=== PATIENT | male | born 1940 | race Caucasian/White ===

== ENCOUNTER → 2017-05-06 08:59 | Outpatient (CLI) | payer MEDICARE, OTHER ==
[~2017-05-06] VITALS: Ht 177.8 cm; Wt 82.7 kg
--- NOTE | ~2017-05-06 | HEMODYNAMI ---
PATIENT:PAULETTE BRIGHT MEDICAL RECORD: [id number] : 40 LOCATION:D.CAT ADMISSION DATE: 05/06/17 Generatedon:05/06/201711:31 Patient name: PAULETTE BRIGHT Patient #: [id number] SSN: : 1940 Date of study: 05/06/2017 Page: Of Hemodynamic Procedure Report Patient Data Patient Demographics Procedure consent was obtained First Name: PAULETTE Gender: Male Last Name: KAILA : 1940 Middle Initial: E Age: 76 year(s) Patient #: [id number] Race: Unknown Additional ID: [id number] Contact details Address: [address] [place] [address] State: [place] City: [place] Zip code: [address] Past Medical History Allergies: No known allergies Admission Admission Data Admission Date: 05/06/2017 Admission Time: 8:59 Admit Source: Other Procedure Procedure Types Cath Procedure Diagnostic Procedure LHC LHC w/Coronaries FFR/IVUS Intra-Coronary IVUS Initial PCI Procedure Coronary Stent Coronary Stent Initial Miscellaneous Procedures Moderate Sedation up to 15 minutes Procedure Description Procedure Date Procedure Date: 05/06/2017 Procedure Start Time: 11:10 Procedure End Time: 11:31 Procedure Staff Name Function José Ba MD Performing Physician Tanya Weaver RT Monitor Otto Almodovar RT Scrub Kirill Anderson RN Nurse Procedure Data Cath Procedure Fluoroscopy Diagnostic fluoroscopy Total fluoroscopy Time: 5.5 time: 5.5 min min Diagnostic fluoroscopy Total fluoroscopy dose: 849 dose: 849 mGy mGy Contrast Material Contrast Material Type Amount (ml) Isovue 300 156 Entry Location Entry Primary Successful Side Size Upsize Upsize Entry Closure Velázquez ccessful Closure Location (Fr) 1 (Fr) 2 (Fr) Remarks Device Remarks Radial Right 6 Fr Mechanical artery Short Compression Estimated blood loss: 10 ml Diagnostic catheters Device Type Used For End Catheter Placement DIAGNOSTIC Whiting 110cm 5 LV Angiography Fr catheter ([id number]) DIAGNOSTIC Whiting 110cm 5 Left Coronary Fr catheter ([id number]) Angiography DIAGNOSTIC Whiting 110cm 5 Right Coronary Fr catheter (206002) Angiography Procedure Complications No complications Procedure Medications Medication Administration Route Dosage 0.9% NaCl I.V. 100 ml/hr Oxygen NC 2 l/min Heparin Flush Bag added to field 2 bags (1000units/500ml NS) Lidocaine 2% added to field 20 Radial Cocktail I.A. 1 syringe (Verapomil 2mg/Nitro 400mcg/Heparin 1500units) Versed I.V. 1 mg Fentanyl I.V. 50 mcg Versed I.V. 0.5 mg Fentanyl I.V. 25 mcg Radial Cocktail I.A. 1 syringe (Verapomil 2mg/Nitro 400mcg/Heparin 1500units) Heparin Bolus I.V. 4000 units Versed I.V. 0.5 mg Fentanyl I.V. 25 mcg Hemodynamics Rest Heart Rate: 60 (bpm) Snapshots Pre Cath Intra NCS Post Cath Vital Signs Time Heart Resp SPO2 etCO2 NIBP (mmHg) Rhythm Pain Sedation Rate (ipm) (%) (mmHg) Status Level (bpm) 10:40:54 63 15 95 36.7 128/82(105) NSR 0 (11) 10(A) , No pain 10:45:34 60 14 97 0 122/75(93) NSR 0 (11) 10(A) , No pain 10:50:11 58 17 93 0 125/78(94) NSR 0 (11) 10(A) , No pain 10:54:47 58 17 92 10.5 119/79(90) NSR 0 (11) 10(A) , No pain 10:59:24 58 17 96 1.5 126/80(93) NSR 0 (11) 10(A) , No pain 11:04:03 58 18 96 11.2 120/76(94) NSR 0 (11) 10(A) , No pain 11:08:41 58 21 94 36.8 124/73(89) NSR 0 (11) 9(A) , No pain 11:13:18 57 17 95 27.7 121/75(90) NSR 0 (11) 9(A) , No pain 11:17:56 60 18 92 40.5 113/68(83) NSR 0 (11) 9(A) , No pain 11:22:33 59 17 96 23.2 119/69(81) NSR 0 (11) 9(A) , No pain 11:27:11 57 17 94 9.7 109/68(80) NSR 0 (11) 9(A) , No pain Medications Time Medication Route Dose Verified Delivered Reason Note s Effectiveness by by 10:42:52 0.9% NaCl I.V. 100 Kirill Kirill Per physician ml/hr Justin Anderson RN RN 10:43:01 Oxygen NC 2 l/min Kirill Kirill Per physician Justin Anderson RN RN 10:43:11 Heparin Flush added 2 bags Kirill Kirill used for Bag to Justin Anderson procedure (1000units/500ml RN RN NS) 10:43:22 Lidocaine 2% added 20ml Kirill Kirill for local to vial Justin Anderson anesthetic field GAONA RN 10:43:34 Radial Cocktail I.A. 1 Kirill Kirill used for (Verapomil syringe Justin Anderson procedure 2mg/Nitro RN RN 400mcg/Heparin 1500units) 11:01:33 Versed I.V. 1 mg Kirill Kirill for sedation Justin Anderson RN RN 11:01:44 Fentanyl I.V. 50 mcg Kirill Kirill for sedation Justin Anderson RN RN 11:05:40 Versed I.V. 0.5 mg Kirill Kirill for sedation Justin Anderson RN RN 11:05:47 Fentanyl I.V. 25 mcg Kirill Kirill for sedation Justin Anderson RN RN 11:12:54 Radial Cocktail I.A. 1 Kirill José for (Verapomil syringe Justin pompa 2mg/Nitro RN 400mcg/Heparin 1500units) 11:17:19 Heparin Bolus I.V. 4000 Kirill Kirill for units Justin Anderson anticoagulation RN RN 11:26:50 Versed I.V. 0.5 mg Kirill Kirill for sedation Justin Anderson RN RN 11:26:58 Fentanyl I.V. 25 mcg Kirill Kirill for sedation Justin Anderson RN television newscast director Log Time Note 10:15:51 Kirill Anderson RN sent for patient. Start room use. 10:33:29 Informed consent obtained and on chart 10:33:32 Admit Source: Other 10:33:57 Time tracking: Regular hours 10:34:01 Plan of Care:Hemodynamics will remain stable., Cardiac rhythm will remain stable., Comfort level will be maintained., Respiratory function will remain adequate., Patient/ family verbilizes understanding of procedure., Procedure tolerated without complication., Recovers from procedure without complications.. 10:34:04 Patient received from Pre/Post Procedure Room to CCL 1 Alert and oriented. Tansferred to table in Supine position. 10:34:05 Warm blankets applied, and yulia hugger turned on for patient comfort. 10:34:06 Correct patient and procedure confirmed by team. 10:34:06 ECG and BP/O2 sat monitors applied to patient. 10:34:13 H&P Date Dictated: 04/16/2017 Within 30 days and on chart., H&P Addendum completed by physician on day of procedure. (MUST COMPLETE FOR ALL OUTPATIENTS). 10:34:15 Pre-procedure instructions explained to patient. 10:34:15 Pre-op teaching completed and patient verbalized understanding. 10:34:16 Family in waiting room. 10:34:17 Patient NPO since Midnight. 10:40:00 Vital chart was started 10:42:52 0.9% NaCl 100 ml/hr I.V. was administered by Kirill Anderson RN; Per physician; 10:43:01 Oxygen 2 l/min NC was administered by Kirill Anderson RN; Per physician; 10:43:11 Heparin Flush Bag (1000units/500ml NS) 2 bags added to field was administered by Kirill Anderson RN; used for procedure; 10:43:15 Full Disclosure recording started 10:43:19 Rhythm: sinus bradycardia 10:43:22 Lidocaine 2% 20ml vial added to field was administered by Kirill Anderson RN; for local anesthetic; 10:43:30 Patient allergic to No known allergies 10:43:34 Radial Cocktail (Verapomil 2mg/Nitro 400mcg/Heparin 1500units) 1 syringe I.A. was administered by Kirill Anderson RN; used for procedure; 10:43:43 Is patient on blood thinner?Yes 10:43:46 ACC The patient was administered the following blood thiners within the last 24 hours: ACCPlavix 10:43:53 Patient diabetic? No. 10:43:57 Previous problem with sedation/anesthesia? No ? 10:43:59 Snore? Yes 10:44:02 Sleep apnea? Yes 10:44:03 Deviated septum? No 10:44:04 Opens mouth fully? Yes 10:44:04 Sticks out tongue? Yes 10:44:06 Airway obstruction? No ? 10:44:08 Dentures? No ? 10:44:12 Pre procedure: right dorsailis pedis pulse 2+ Normal; easily identifiable; not easily obliterated 10:44:14 Modified August's test Ulnar < 7 seconds 10:44:17 Patient pain scale 0/10 ?. 10:44:24 IV patent on arrival in left hand with 0.9% NaCl at [facility]. 10:44:26 Lab results completed and on chart. 10:44:32 Right Radial & Right Groin area was prepped with chlora-prep and draped in sterile fashion 10:44:33 Alarms reviewed by R. N. 10:44:34 Sharps counted by scrub and verified by R.N. 10:44:43 Use device set Radial Dx or PCI 10:44:44 ACIST Syringe (59008) opened to sterile field. 10:44:45 Medline Cath Pack ([id number]) opened to sterile field. 10:44:45 Bag Decanter (2002S) opened to sterile field. 10:44:46 SHEATH 6FR Slender ([id number]) opened to sterile field. 10:44:47 DIAGNOSTIC WIRE .035 260cm J wire (678722) opened to sterile field. 10:44:47 ACIST Hand Control (94278) opened to sterile field. 10:44:48 ACIST Manifold (12191) opened to sterile field. 10:44:48 Tegaderm 4 x 4 (1626W) opened to sterile field. 10:44:49 MBrace Wrist Support ([id number]) opened to sterile field. 10:54:02 Baseline sample Acquired. 11:00:13 Zero performed for pressure channel P1 11:00:24 Final Timeout: patient, procedure, and site verified with staff and physician. All members of the team are in agreement. 11:00:29 Right Radial site verified by team. 11:00:31 Physical assessment completed. ASA score P 2 - A patient with mild systemic disease as per José Ba MD. 11:00:35 Sedation plan: IV Moderate Sedation Medication:Versed, Fentanyl 11:01:33 Versed 1 mg I.V. was administered by Kirill Anderson RN; for sedation; 11::44 Fentanyl 50 mcg I.V. was administered by Kirill Anderson RN; for sedation; 11:05:40 Versed 0.5 mg I.V. was administered by Kirill Anderson RN; for sedation; 11:05:47 Fentanyl 25 mcg I.V. was administered by Kirill Anderson RN; for sedation; 11:10:43 Procedure started. 11:10:50 Local anesthetic to right radial artery with Lidocaine 2% by José Ba MD.INITIAL ACCESS ONLY 11:12:08 A 6 Fr Short sheath was inserted into the Right Radial artery 11:12:54 Radial Cocktail (Verapomil 2mg/Nitro 400mcg/Heparin 1500units) 1 syringe I.A. was administered by José Ba MD; for vasodilation; 11:13:51 A DIAGNOSTIC Whiting 110cm 5 Fr catheter (184600) was advanced over the wire and used for LV Angiography. 11:13:54 LV gram done using GRUBER 11:13:56 LV hemodynamics recorded. 11:13:59 Injector settings: Ml/sec: 5, Volume: 15, 11:14:10 A DIAGNOSTIC Whiting 110cm 5 Fr catheter (189763) was advanced over the wire and used for Left Coronary Angiography. 11:14:32 Use device set TAU PCI 11:14:35 INFLATOR Merit BasixCompak (AI6079) opened to sterile field. 11:14:56 A DIAGNOSTIC Whiting 110cm 5 Fr catheter (976750) was advanced over the wire and used for Right Coronary Angiography. 11:15:50 Catheter removed. 11:16:29 Belfair Hoh Eagleye IVUS Catheter (76026P) opened to sterile field. 11:17:19 Heparin Bolus 4000 units I.V. was administered by Kirill Anderson RN; for anticoagulation; 11:17:41 6 Fr XBLAD 3.5 guide catheter was inserted over the wire 11:18:02 Choice PT ES wire advanced. 11:18:21 Wire removed. 11:18:27 Guide Catheter removed. unable to cannulate vessel. 11:18:35 GUIDE 6FR XBLAD 3.5 catheter ([id number]) opened to sterile field. 11:18:36 GUIDE 6FR XBLAD 4.0 catheter (75744173) opened to sterile field. 11:18:42 CHOICE PT Extra Support 182cm wire ([id number]) opened to sterile field. 11:19:54 6 Fr XBLAD 4.0 guide catheter was inserted over the wire 11:20:08 CHOICE PT ES wire advanced. 11:21:11 IVUS catheter advanced over wire. 11:21:39 IVUS pass to LAD lesion performed. 11:21:40 IVUS catheter removed over wire. 11:23:42 Inflation Number: 1 A CIELO RX 2.5 x 22 stent ([id number]) was prepped and advanced across the Dist LAD. The stent was deployed at 13 YESSENIA for 0:10 (min:sec). 11:26:46 Inflation Number: 1 A CIELO RX 3.0 x 18 stent ([id number]) was prepped and advanced across the Mid LAD. The stent was deployed at 13 YESSENIA for 0:07 (min:sec). 11:26:50 Versed 0.5 mg I.V. was administered by Kirill Anderson RN; for sedation; 11::58 Fentanyl 25 mcg I.V. was administered by Kirill Anderson RN; for sedation; 11:27:05 Inflation number: 2 The stent balloon was then re-inflated across the Mid LAD to 13 YESSENIA for 0:06 (min:sec). 11:27:32 Stent catheter was removed intact over wire. 11:27:33 Wire removed. 11:27:34 Guide catheter removed. 11:27:43 Sheath removed intact; hemostasis achieved with Mechanical Compression to the Right Radial artery. 11::57 Procedure ended.(Physican Out) 11:28:32 Fluoroscopy time 05.50 minutes. 11::36 Flurop Dose total: 849 ::36 Fluoroscopy dose: 849 mGy 11::42 Contrast amount:Isovue 300 156ml. 11::44 Sharps counted by scrub and verified by R.N. 11:28:46 TR band inflated with 9cc of air. 11:28:47 Insertion/operative site no bleeding no hematoma. 11:28:54 Post right radial artery:stable, clean and dry 11::57 Post Procedure Pulses reassessed and unchanged 11:29:00 Post-procedure physical assessment completed. ASA score P 2 - A patient with mild systemic disease as per José Ba MD. 11:29:03 Post procedure rhythm: unchanged. 11:29:06 Estimated blood loss: 10 ml 11:29:07 Post procedure instruction explained to patient.Patient verbalizes understanding. 11:29:07 Patient needs reinforcement of post procedure teaching. 11:29:25 Procedure type changed to Cath procedure, Diagnostic procedure, LHC, LHC w/Coronaries, FFR/IVUS, Intra-Coronary IVUS Initial, PCI procedure, Coronary Stent, Coronary Stent Initial, Miscellaneous Procedures, Moderate Sedation up to 15 minutes 11:29:59 Procedure Complication : No complications 11:30:01 See physician's report for complete and final results. 11:30:19 TR BAND Standard ([id number]) opened to sterile field. 11:30:55 Procedure and supply charges have been captured, reviewed, submitted and are correct. 11:31:17 Vital chart was stopped 11::19 Report given to Pre/Post Procedure Room. 11:31:22 Patient transfered to Pre/Post Procedure Room with Stretcher. 11:31:25 Procedure ended. 11:31:25 Full Disclosure recording stopped 11:31:31 End room use (Document Last) Intervention Summary Intervention Notes Time ActionType Lesion and Equipment Used Action# Pressure Duration Attributes 11:23:42 Place stent Dist LAD CIELO RX 2.5 x 1 13 00:10 22 stent ([id number]) 11:26:46 Place stent Mid LAD CIELO RX 3.0 x 1 13 00:07 18 stent ([id number]) 11:27:05 Reinflate Mid LAD CIELO RX 3.0 x 2 13 00:06 stent 18 stent balloon ([id number]) Device Usage Item Name Manufacture Quantity Catalog Number Hospital Part Current M inimal Lot# / Charge Number Stock Stock Serial# Code ACIST Syringe Acist 1 07582 460007 511485 736014 2 0 (58129) Medical Loffles Inc Medline Cath Cardinal 1 [id number] 411456 47139 871279 5 Operative Media ([id number]) Bag Decanter Microtek 1 600255 88289 096418 5 () Medical Inc. SHEATH 6FR Terumo 1 [id number] 142521 113345 876102 4 0 Slender ([id number]) DIAGNOSTIC St Leif 1 705350 481380 103029 544655 3 0 WIRE .035 260cm J wire (713268) ACIST Hand Acist 1 60899 585137 822846 538898 5 Control Medical (08236) Systems Inc ACIST Manifold Acist 1 95675 761429 546576 159804 5 (99077) Medical Systems Inc Tegaderm 4 x 4 3M 1 1626W 013401 246883 374583 5 (1626W) MBrace Wrist Advanced 1 140-0250-00 991622 23136 872152 5 Support Vascular ([id number]) Dynamics DIAGNOSTIC Terumo 1 40-7103 089265 347103 147170 5 Whiting 110cm 5 Fr catheter (751405) INFLATOR Merit Merit 1 CC1127 798598 643768 882770 1 5 Proximic (TV9418) Belfair Belfair 1 80122H 512808 855103 079601 8 Hoh Eagleye IVUS Catheter (29913S) GUIDE 6FR Cardinal 1 45162714 702878 804877 100991 1 0 XBLAD 3.5 Health catheter (26856603) GUIDE 6FR Cardinal 1 17280931 739180 115292 423275 3 XBLAD 4.0 Health catheter (99471049) CHOICE PT [place] 1 [id number] 169646 509930 626890 5 Extra Support Scientific 182cm wire (6341044T4) CIELO RX 2.5 x Medtronic 1 [id number] 262450 8114134 657405 5 [id number] 22 stent ([id number]) CIELO RX 3.0 x Medtronic 1 [id number] 224451 4872246 135501 5 [id number] 18 stent ([id number]) TR BAND Terumo 1 [id number] 299335 284737 272695 4 0 Standard (JSI00OUM) Signature Audit Clayton Stage Time Signature Unsigned Intra-Procedure 05/06/2017 Tanya 11:31:44 AM Counts RT(R) Signatures Monitor : Tanya Signature : Counts RT Date : Time : [address] [place] [address]
--- NOTE | ~2017-05-06 | OP ---
PATIENT NAME: PAULETTE BRIGHT MEDICAL RECORD: [id number] :40 LOCATION:D.CAT ADMISSION DATE: SURGEON: SERGIO OREILLY MD DATE OF OPERATION: 05/06/2017 PROCEDURES: 1. PTCA and stent of LAD. 2. Intravascular ultrasound of LAD. 3. Left heart catheterization. 4. Selective coronary angiography. 5. Left ventriculogram. INDICATIONS: Angina and coronary artery disease. PROCEDURE: After informed consent was obtained and after detailed explanation of risks and benefits as well as alternative therapies, the patient elected to proceed with angiogram and angioplasty. The right radial area was prepped and draped in normal sterile fashion. Right radial artery was cannulated via modified Seldinger technique with placement of a 6-Afghan sheath. All catheters were exchanged through this sheath. FINDINGS: Left ventriculogram was performed in standard 30-degree GRUBER view, reveals good cardiac wall motion. Ejection fraction is 60%. SELECTIVE CORONARY ANGIOGRAPHY: 1. Left main has no significant angiographic disease. 2. Left anterior descending has greater than 80% stenosis, confirmed by intravascular ultrasound throughout the mid vessel. 3. Left circumflex has moderate irregularities, but no flow-limiting stenosis. 4. Right coronary has moderate irregularities, but no flow-limiting stenosis. PTCA AND STENT OF THE LAD: Stents used were 3.0 x 18 and 2.5 x 22, both [place] extents. Result was 0% residual stenosis. OVERALL IMPRESSION: Successful PTCA and stent of the LAD going from 80% initial stenosis to 0% residual. TRANSINT:[id number] Voice Confirmation ID: [id number] DOCUMENT ID: [id number] SERGIO OREILLY MD CC: [id number] DICTATION DATE: 05/06/17 1130 PETROLEUM INSPECTOR SUPERVISOR: 05/06/17 1159 REG [facility] [address] [place] [address]
[~2017-05-06 08:59] MED LIST: ASPIRIN EC81 M1 PO; FISH OIL 1,0001 CA1 PO; LIPITOR40 MG PO; MULTI-DAY VITAM1 TAB; MULTIPLE VITAMI1 TA1 PO; PLAVIX75 MG PO
[2017-05-06 09:25] VITALS: BP 139/105; Ht 177.8 cm; Wt 82.7 kg
[2017-05-06 09:34] LABS: HEMATOCRIT 43.6 % (42.0-54.0); HEMOGLOBIN 15.1 g/dL (13.5-17.5); LYMPHOCYTES 22.7 % (15-50); MCH 32.3 pg (26.0-34.0); MCHC 34.6 g/dL (31.0-37.0); MCV 93.4 fL (80.0-100.0); MEAN PLATELET VOLUME 10.2 fL (7.4-10.4); NEUTROPHILS 66.3 % (40-80); PLATELET COUNT 172 10x3/uL (130-400); RBC 4.67 10x6/uL (4.20-6.10); RDW 12.9 % (11.5-14.5); WBC 5.6 10x3/uL (4.8-10.8)
[2017-05-06 09:51] LABS: CALC OSMOLALITY 284 mosm/kg (275-300); CALCIUM 9.3 mg/dL (8.5-10.1); CARBON DIOXIDE 26.8 mmol/L (21.0-32.0); CHLORIDE - SERUM 106 mmol/L (98-107); GLUCOSE 97 mg/dL (74-106); SODIUM 142 mmol/L (136-145); UREA NITROGEN 17 mg/dL (7-18); eGFR NON AFRICAN AMERICAN 77 mL/min (90-120)
== END | disposition home or self-care (01) ==
LOC: D.CATH 08:59
PROVIDERS: Internal Medicine Interventional Cardiology
DX: I25.119 Atherosclerotic heart disease of native coronary artery with unspecified angina pectoris (principal); E78.5 Hyperlipidemia, unspecified; R06.09 Other forms of dyspnea; Z01.812 Encounter for preprocedural laboratory examination
CPT/HCPCS: 93458; 92978; C9600

== ENCOUNTER 2019-10-04 15:53 | Inpatient (IN) | payer MEDICARE, OTHER ==
[~2019-10-04] VITALS: Ht 175.3 cm; Wt 92.5 kg
--- NOTE | ~2019-10-04 | EC ---
PATIENT:PAULETTE BRIGHT DATE OF SERVICE: 10/04/19 SEX: M MEDICAL RECORD: [id number] DATE OF : [birth year] LOCATION:[facility] AGE OF PATIENT: 78 ADMISSION DATE: 10/04/19 REFERRING PHYSICIAN: INTERPRETING PHYSICIAN: DARI ANTOINE MD ECHOCARDIOGRAM REPORT ECHO CHARGES 4 ECHO COMPLETE Date: 10/07/19 CLINICAL DIAGNOSIS: AFIB, REPIRATORY FAILURE, COVID+ ECHOCARDIOGRAPHIC MEASUREMENTS (adult normal given) AC root (d.<3.7cm) 3.2 cm LV Septum d (<1.2 cm> 1.1 cm Valve Excursion 1.6 cm LV Septum (systole) 1.2 cm Left Atria (s.<4.0cm> 4.1 cm LVPW d(<1.2cm) 1.1 cm RV (d.<2.3cm) 2.0 cm LVPW (sytole) 1.4 cm LV diastole(<5.6CM) 4.8 cm MV E-F(>70mm/sec) cm LV systole 3.6 cm LVOT Diameter 1.6 cm MV exc.(>10mm) cm Est.ejection fraction (50-75%) % DOPPLER: LVIT cm/sec A 57 cm/sec E 27 cm/sec LA cm/sec RVSP 32.5 mmHg LVOT 91 cm/sec AOP1/2T m/s Asc. Ao 211 cm/sec RVOT 51 cm/sec RA cm/sec PA 87 cm/sec AV Gradient Peak 17.8 mmHg AV Mean 11.8 mmHg AV Area 0.7 cm MV Gradient Peak 2.8 mmHg MV Mean 1.7 mmHg MV Area cm COMMENTS: Billing Adjudicator: Marina MCFADDEN Video Editing Internship: Sampson Antoine TAPE# PACS Pericardial Effusion N DATE OF SERVICE: PROCEDURE: Transthoracic echocardiogram. FINDINGS: 1. Left ventricle appears to have normal to hyperdynamic function 60% to 65%. There is no obvious regional wall motion abnormalities. 2. Left atrium appears to be mildly dilated with normal function. 3. Aortic valve is normal. 4. Mitral valve is not well visualized, but grossly normal with no significant ECHOCARDIOGRAM REPORT [id number] PAULETTE BRIGHT mitral regurgitation demonstrated on this study. 5. Tricuspid valve has mild tricuspid regurgitation. RVSP appears to be 32 mmHg. 6. Right ventricle appears to be normal size, shape, structure, and function. 7. Pulmonic valve is not well visualized. TRANSINT:[id number] Voice Confirmation ID: [id number] DOCUMENT ID: [id number] DARI ANTOINE MD CC: [id number] DICTATION DATE: 10/08/19 1034 FELTMAKER: 10/08/19 1201 ADM IN [facility] [address] [place] [id number]
--- NOTE | 2019-10-04 16:58 | NUR ---
BLOOD TO LAB
--- NOTE | 2019-10-04 16:58 | NUR ---
BLOOD TO LAB
[2019-10-04 17:01] LABS: BASOPHILS 0.1 % (0-2); EOSINOPHILS 0.4 % (0-7); HEMATOCRIT 44.4 % (42.0-54.0); HEMOGLOBIN 15.3 g/dL (13.5-17.5); IMMATURE GRANULOCYTES 0.3 % (0-5); MCH 32.7 pg (26.0-34.0); MCHC 34.5 g/dL (31.0-37.0); MCV 94.9 fL (80.0-100.0); MEAN PLATELET VOLUME 10.3 fL (7.4-10.4); MONOCYTES 2.1 % (2-11); NEUTROPHILS 93.1 % (40-80); PLATELET COUNT 157 10x3/uL (130-400); RBC 4.68 10x6/uL (4.20-6.10); RDW 13.4 % (11.5-14.5); WBC 11.4 10x3/uL (4.8-10.8)
[2019-10-04] MEDS ORDERED: COREG 3.1253.125 MG PO (17:01)
[2019-10-04] MEDS ORDERED: B-12 DOTS500 MCG PO (17:02)
[2019-10-04] MEDS ORDERED: OSTEO BI-FLEX1 EAC1 PO (17:02)
[2019-10-04] MEDS ORDERED: LUTEIN20 MG PO (17:03)
[2019-10-04 17:15] LABS: CALC OSMOLALITY 263 mosm/kg (275-300); CALCIUM 8.7 mg/dL (8.5-10.1); CARBON DIOXIDE 24.3 mmol/L (21.0-32.0); CHLORIDE - SERUM 97 mmol/L (98-107); GLUCOSE 126 mg/dL (74-106); POTASSIUM - SERUM 3.2 mmol/L (3.5-5.1); SODIUM 130 mmol/L (136-145); UREA NITROGEN 16 mg/dL (7-18); eGFR NON AFRICAN AMERICAN 77 mL/min (90-120)
[2019-10-04 17:19] LABS: APTT 34.5 SECONDS (22.8-39.4); INR 1.52 (0.85-1.17); PROTIME 18.1 SECONDS (11.6-15.0)
[2019-10-04 17:32] LABS: ALBUMIN 2.4 g/dL (3.4-5.0); ALKALINE PHOSPHATASE 82 U/L (30-120); ALT (SGPT) 74 U/L (10-68); CREATINE KINASE 110 UL (21-232); PRO BNP 2198 pg/mL (0-450); PROTEIN - SERUM 6.8 g/dL (6.4-8.2)
[2019-10-04 17:37] LABS: TROPONIN-I < 0.017 ng/mL (0.000-0.060)
--- NOTE | 2019-10-04 18:34 | NUR ---
PT TO CT
--- NOTE | 2019-10-04 19:00 | NUR ---
REPORT GIVEN TO CANDELARIA BOWMAN
[2019-10-04 19:37] VITALS: BP 156/90
[2019-10-04 20:30] VITALS: BP 149/88
--- NOTE | 2019-10-04 20:35 | NUR ---
ADMINISTRATION TIMES ON MEDS FOR 10/04/19: AZITHROMYCIN 500MG/250ML, STARTED 1920, FINISHED 2020. 250ML INFUSED. REMDESIVIR 200MG/250ML, STARTED 1950, FINISHED 2030. 250ML INFUSED. KCL 10MEQ/100ML NS, STARTED 1929, FINISHED 2029. 100ML INFUSED. NS BOLUS 1000ML, STARTED 1821, FINISHED 1921. 1000ML INFUSED.
--- NOTE | 2019-10-04 20:40 | NUR ---
ARRIVES VIA STRETCHER TO BED LOW AND LOCKED O2 IN PLACE CALL LIGHT IN REACH
--- NOTE | 2019-10-04 20:50 | NUR ---
PT SOB WITH A FEW CRACKLES DEMINISHED WELL WILL LEAVE IV SALINE LOCKED TONIGHT
[2019-10-04 21:25] VITALS: BP 144/80
[2019-10-04 21:35] LABS: BILIRUBIN NEGATIVE (NEGATIVE); GLUCOSE NEGATIVE (NEGATIVE); KETONE NEGATIVE (NEGATIVE); NITRITE NEGATIVE (NEGATIVE); UROBILINOGEN NORMAL (NORMAL)
[2019-10-05] VITALS (12 sets, daily range): BP systolic 119–183; BP diastolic 78–122; BMI 25.1
--- NOTE | 2019-10-05 02:37 | NUR ---
I have reviewed this patient and I concur with the Shift Assessment completed by the Licensed Practical Nurse today this shift.
--- NOTE | 2019-10-05 02:38 | NUR ---
ADMISSION ASSESSMENT PER RN COMPLETED.
[2019-10-05 05:28] LABS: BASOPHILS 0.1 % (0-2); EOSINOPHILS 0 % (0-7); HEMATOCRIT 41.2 % (42.0-54.0); HEMOGLOBIN 14.1 g/dL (13.5-17.5); IMMATURE GRANULOCYTES 0.3 % (0-5); LYMPHOCYTES 4.5 % (15-50); MCH 32.1 pg (26.0-34.0); MCHC 34.2 g/dL (31.0-37.0); MCV 93.8 fL (80.0-100.0); MEAN PLATELET VOLUME 10.8 fL (7.4-10.4); MONOCYTES 2.7 % (2-11); NEUTROPHILS 92.4 % (40-80); RBC 4.39 10x6/uL (4.20-6.10); RDW 13.4 % (11.5-14.5); WBC 8.6 10x3/uL (4.8-10.8)
[2019-10-05 06:04] LABS: PLATELET COUNT 122 10x3/uL (130-400)
[2019-10-05 06:15] LABS: ALKALINE PHOSPHATASE 80 U/L (30-120); ALT (SGPT) 61 U/L (10-68); BILIRUBIN - TOTAL 1.52 mg/dL (0.2-1.3); CALC OSMOLALITY 274 mosm/kg (275-300); CALCIUM 8.2 mg/dL (8.5-10.1); CARBON DIOXIDE 25.1 mmol/L (21.0-32.0); CHLORIDE - SERUM 102 mmol/L (98-107); CREATINE KINASE 162 UL (21-232); CREATININE - SERUM 0.9 mg/dL (0.6-1.3); GLUCOSE 130 mg/dL (74-106); LDH 508 U/L (85-227); MAGNESIUM - SERUM 2.2 mg/dL (1.8-2.4); PHOSPHOROUS 2.1 mg/dL (2.5-4.9); PROTEIN - SERUM 5.9 g/dL (6.4-8.2); SODIUM 136 mmol/L (136-145); UREA NITROGEN 15 mg/dL (7-18); eGFR NON AFRICAN AMERICAN 87 mL/min (90-120)
[2019-10-05 06:18] LABS: FERRITIN 1386 ng/mL (3-244); POTASSIUM - SERUM 3.7 mmol/L (3.5-5.1)
[2019-10-05 06:31] LABS: C-REACTIVE PROTEIN 33.7 mg/dL (0.0-0.9)
--- NOTE | 2019-10-05 08:40 | NUR ---
NO RESULTS IN THE CHART FROM OUTSIDE FACILITY. I CALLED THE PATIENT WHO STATES TO CALL HIS . INFORMATION GIVEN. CALLED NAHUM AT [facility] AND THEY WILL FAXED THE RESULTS FROM [place] ON 09/24/19.
--- NOTE | 2019-10-05 10:09 | NUR ---
REPORT RECEIVED. WILL CONTINUE WITH POC. ASSISTED PT TO AND FROM BATHROOM. PT VOIDED APPROX 400ML OF URINE. CLEANED PT AND APPLIED NEW LINEN. DYSPNEA ON EXERTION. VSS AND WNL. PT ON 7L 02. NS INFUSING @50ML/HR VIA R.FOR PIV. L.FOR PIV SALINE LOCKED. NO S/S OF DISTRESS NOTED. PT DENIES ANY NEEDS AT THIS TIME. WILL CTM.
--- NOTE | 2019-10-05 15:54 | NUR ---
PT TRANSFERED TO 2311.
--- NOTE | 2019-10-05 16:00 | NUR ---
REC'D VIA WHEEL CHAIR WITH PERSONNEL X2, AAO, NO SIGNS OF DISTRESS, VSS, CONNECTED TO ICU MONITORS, ASSESSMENT COMPLETED PER FLOWSHEET, ACCLAMATED TO ICU, ASSESSMENT COMPLTED PER FLOWSHEET, NO NEEDS AT THIS TIME
--- NOTE | 2019-10-05 17:01 | NUR ---
DR LLOYD, HERE IN UNIT, SPOKE WITH FAMILY MEMBER ON PHONE AND GAVE UPDATE ON STATUS.....
--- NOTE | 2019-10-05 17:15 | NUR ---
DINNER TRAY TO BEDSIDE, INDEPENDENT WITH SET UP AND EATING
[2019-10-06] VITALS (27 sets, daily range): BP systolic 60–152; BP diastolic 40–117; Ht 175.3 cm; Wt 92.5 kg
--- NOTE | 2019-10-06 07:00 | NUR ---
PATIENT GETTING OUT OF BED, PULLING ALL EKG LEAD, PULSE OX AND OXYGEN OFF. REAPPLY ALL PULSE OX 87%. PLACED ON 10 LITERS HIGH FLOW OXYGEN, RESTRAINTS APPLIED TO KEEP OXYGEN ON PATIENT. PATIENT HAS BEEN REMINDED ALL NIGHT OF NEED TO KEEP OXYGEN ON. PATIENT DOES HAVE INCREASE RESP. DISTRESS WITH INCREASE RESP RATE WHEN OXYGEN OFF. HEAD OF BED ELEVATED. PATIENT IN VISUAL FROM NURSE STATION. LIGHTS ON.
[2019-10-06 07:34] LABS: BASOPHILS 0.1 % (0-2); EOSINOPHILS 0 % (0-7); HEMATOCRIT 47.2 % (42.0-54.0); HEMOGLOBIN 16.1 g/dL (13.5-17.5); IMMATURE GRANULOCYTES 1.1 % (0-5); LYMPHOCYTES 5.3 % (15-50); MCH 32.1 pg (26.0-34.0); MCHC 34.1 g/dL (31.0-37.0); MONOCYTES 4.1 % (2-11); NEUTROPHILS 89.4 % (40-80); PLATELET COUNT 71 10x3/uL (130-400); RBC 5.02 10x6/uL (4.20-6.10); RDW 14.6 % (11.5-14.5); WBC 21.3 10x3/uL (4.8-10.8)
[2019-10-06 08:16] LABS: ALBUMIN 2.8 g/dL (3.4-5.0); ANION GAP 17.5 mmol/L (8-16); BILIRUBIN - TOTAL 3.64 mg/dL (0.2-1.3); CARBON DIOXIDE 21.4 mmol/L (21.0-32.0); MAGNESIUM - SERUM 2.5 mg/dL (1.8-2.4); POTASSIUM - SERUM 3.9 mmol/L (3.5-5.1); PROTEIN - SERUM 7.1 g/dL (6.4-8.2)
--- NOTE | 2019-10-06 09:01 | NUR ---
CONTINUE TO REPLACE PULSE OX AND EKG AND OXYGEN PATIENT WILL MOVE AROUND AND REMOVE ALL. TRY TO GET OUT OF BED. ALERT, JUST CAN NOT REMEMBER TO LEAVE OXYGEN ON.
--- NOTE | 2019-10-06 10:05 | NUR ---
CALLED AND TALKED WITH THEN CALLED DAUGHTER INFORMED OF PATIENT CONFUSION AND PATIENT CONTINOUSLY TAKING OXYGEN OFF, NEED TO APPLY RESTRAINTS TO KEEP OXYGEN ON PATIENT AND KEEP PULSE OX ABOVE 92%. PATIENT CONTINUES TO REMOVE EKG, PULSE OX AND OXYGEN. NEEDS FREQ REPLACING
--- NOTE | 2019-10-06 11:04 | NUR ---
PATIENT USING CALL LIGHT, STILL CONFUSED, BUT PLEASANTLY CONFUSED. FORGET NEEDS CONSTANT REMINDER TO KEEP OXYGEN ON.
--- NOTE | 2019-10-06 11:30 | NUR ---
SHABNAM WITH CARDIOLOGY NOTIFIED OF CONSULT AND TROP LEVEL. LEFT MESSAGE WITH RENAL ABOUT CONSULT. PATIENT CONTINUES TO REMOVE OXYGEN AND LINE. IV LEFT FOREARM STARTED PER EYAD BREWER INFUSING WITH NS AT 50 ML HOUR.
--- NOTE | 2019-10-06 12:00 | NUR ---
[address] LLOYD HERE REVIEWED EKG ORDERS FOR CARDIZEM GTT . 12 LEAD UNCONTROLLED ATRIAL FIB.10 LITERS REBREATHER MASK APPLIED PER DR. LLOYD INSTRUCTIONS.PULSE OX DOWN INTO 59%, RETURNED TO 94% AFTER REBREATHER MASK APPLIED.
--- NOTE | 2019-10-06 12:43 | NUR ---
DR. PALMA HERE REMINDED OF CONSULT. CARDIZEM GTT STARTED 10 MG HOUR
[2019-10-06 14:59] LABS: ERYTHROCYTE SEDIMENTATION RATE 0 mm/hr (0-20)
--- NOTE | 2019-10-06 17:00 | NUR ---
DR INFANTE HERE INTUBATING PT. CVL PLACED. ART LINE PLACED.
--- NOTE | 2019-10-06 18:40 | NUR ---
DR LLOYD CALLED INSTRUCT PT HR GOING FROM 80"S TO 40S. B\\P IN 60S. NS BOLUS STARTED 500CC. LEVOPHED STARTED AT 10 MCG\\MIN.
--- NOTE | 2019-10-06 19:00 | NUR ---
SHIFT ASSESSMENT COMPLETED. PT CARE ASSUMED, MONITORS ON AND WORKING. VENT SETTINGS NOTED. BAIRD CATH STAT LOCKED IN PLACE. SEE FLOW SHEET FOR FURTHER DETAILS. WILL CONTINUE TO OBSERVE.
[2019-10-06 19:47] LABS: HEMATOCRIT 38.4 % (42.0-54.0); HEMOGLOBIN 12.9 g/dL (13.5-17.5); MCH 31.7 pg (26.0-34.0); MCHC 33.6 g/dL (31.0-37.0); MCV 94.3 fL (80.0-100.0); PLATELET COUNT 82 10x3/uL (130-400); RBC 4.07 10x6/uL (4.20-6.10); RDW 14.5 % (11.5-14.5); WBC 20.9 10x3/uL (4.8-10.8)
[2019-10-06 19:56] LABS: ANION GAP 15.3 mmol/L (8-16); CALCIUM 7.7 mg/dL (8.5-10.1); CARBON DIOXIDE 21.7 mmol/L (21.0-32.0); CREATININE - SERUM 2.4 mg/dL (0.6-1.3)
[2019-10-06 20:05] LABS: LYMPHOCYTES 12 % (15-50); MONOCYTES 3 % (2-11); NEUTROPHILS 85 % (40-80); PLATELET ESTIMATE DECREASED
[2019-10-06 20:09] LABS: BILIRUBIN - TOTAL 1.32 mg/dL (0.2-1.3)
[2019-10-06 20:10] LABS: PROTEIN - SERUM 5.2 g/dL (6.4-8.2); TROPONIN-I 0.162 ng/mL (0.000-0.060)
[2019-10-06 20:16] LABS: BACTERIA MODERATE /hpf (NEGATIVE); BILIRUBIN NEGATIVE (NEGATIVE); EPITHELIAL CELLS 0-5 /hpf (0-5); GLUCOSE 100 mg/dL (NEGATIVE); KETONE NEGATIVE (NEGATIVE); NITRITE NEGATIVE (NEGATIVE); RED CELLS - URINE OCC /hpf (0-5); UROBILINOGEN NORMAL (NORMAL); WHITE CELLS - URINE RARE /hpf (NEGATIVE)
--- NOTE | 2019-10-06 21:00 | NUR ---
PT TURNED AND REPOSITIONED FOR COMFORT. MONITORS ON AND WORKING, PRESSORS TITRATING ACCORDING TO BLOOD PRESSURE, WILL CONTINUE TO OBSERVE.
--- NOTE | 2019-10-06 21:52 | NUR ---
I WENT TO DO RENAL U/S AROUND 5 PM. PT WAS TO BE INTUBATED AND COULD NOT DO. I CHECKED AT 945 PM BEFORE I WENT TO ICU TO DO PT AND WAS TOLD PT WAS NOT STABLE ENOUGH TO DO U/S TONIGHT AND TO CHECK TOMORROW PER CANDELARIA JUAREZ. ROSAMARIA,LADANMS
--- NOTE | 2019-10-06 23:00 | NUR ---
SPOKE WITH PTS FAMILY, UPDATE PROVIDED. MONITORS ON AND WORKING, REC'D NEW ORDERS TO HANF LR AT 150ML/HR FOR CVP LESS THAN 12. WILL CONTINUE TO OBSERVE.
[2019-10-07] VITALS (66 sets, daily range): BP systolic 86–168; BP diastolic 47–111
--- NOTE | 2019-10-07 01:00 | NUR ---
NO CHANGES, PT TURNED AND REPOSITIONED FOR COMFORT. MONITORS ON AND WORKING, WILL CONTINUE TO OBSERVE.
--- NOTE | 2019-10-07 03:00 | NUR ---
PT TURNED AND REPOSITIONED FOR COMFORT, MONITORS ON AND WORKING. SEE FLOW SHEET FOR FURTHER DETIALS. WILL CONTINUE TO OBSERVE.
--- NOTE | 2019-10-07 05:00 | NUR ---
no changes, monitors on and working, will continue to observe.
[2019-10-07 06:21] LABS: BASOPHILS 0.1 % (0-2); EOSINOPHILS 0 % (0-7); HEMATOCRIT 37.1 % (42.0-54.0); LYMPHOCYTES 3.9 % (15-50); MCH 31.3 pg (26.0-34.0); MCHC 32.3 g/dL (31.0-37.0); MCV 96.6 fL (80.0-100.0); MONOCYTES 5.1 % (2-11); NEUTROPHILS 89.9 % (40-80); PLATELET COUNT 97 10x3/uL (130-400); RBC 3.84 10x6/uL (4.20-6.10); WBC 20.5 10x3/uL (4.8-10.8)
[2019-10-07 07:29] LABS: ALBUMIN 2.1 g/dL (3.4-5.0); ANION GAP 14.9 mmol/L (8-16); BILIRUBIN - TOTAL 0.77 mg/dL (0.2-1.3); CALCIUM 7.4 mg/dL (8.5-10.1); CARBON DIOXIDE 20.5 mmol/L (21.0-32.0); CREATININE - SERUM 2.8 mg/dL (0.6-1.3); MAGNESIUM - SERUM 2.5 mg/dL (1.8-2.4); POTASSIUM - SERUM 4.4 mmol/L (3.5-5.1); PROTEIN - SERUM 5.1 g/dL (6.4-8.2)
[2019-10-07 07:30] LABS: TROPONIN-I 0.096 ng/mL (0.000-0.060)
--- NOTE | 2019-10-07 10:17 | NUR ---
Nutrition follow-up: Pt now intubated, sedated Labs: BUN/Cr elevated; renal consulted Wt: 170# NPO Will need nutrition support started within 24-48 hours or when medically feasible Recommend Pulmocare @ 20 ml/hr with increase to goal rate of 50 ml/hr with 100 ml H2O flush Q 4 hours RDN following.
--- NOTE | 2019-10-07 12:35 | NUR ---
0700 REPORT FROM SILVANA GAONAHAND CLIPPER COMPLETE 3 PRESSERS INFUSING, SEE IV FLOW SHEET
--- NOTE | 2019-10-07 12:39 | NUR ---
0900 REPOSITIONED IN BED HEART RATE INCREASE TO THE 130'S CALLMED DOWN QUICKLY
--- NOTE | 2019-10-07 12:45 | NUR ---
0951 GAVE 2 AMP SODIUM BICARB IV STARTED BICARB INFUSION WITH 3 AMPS IN ONE LITER D5W
--- NOTE | 2019-10-07 12:46 | NUR ---
1030 PTS , MELY, CALLED FOR UPDATE
--- NOTE | 2019-10-07 12:48 | NUR ---
1200 HAVE WEANED OFF OF NEOSYNEPHRINE GTT AND VASOPARESSIN. REMAINS ON LEVOPHED AT 15MCG/MIN
[2019-10-07 17:47] LABS: CREATININE - URINE 98.8 mg/dL (30-125); PROTEIN - URINE 95.9 mg/dL (0.0-11.9)
[2019-10-07 19:08] LABS: SPE - A/G RATIO 0.9 (0.7-1.7); SPE - ALBUMIN 3.1 g/dL (2.9-4.4); SPE - ALPHA-1 GLOBULIN 0.6 g/dL (0.0-0.4); SPE - ALPHA-2 GLOBULIN 0.7 g/dL (0.4-1.0); SPE - BETA GLOBULIN 1.2 g/dL (0.7-1.3); SPE - GAMMA GLOBULIN 1.1 g/dL (0.4-1.8); SPE - M-SPIKE Not Observed g/dL (Not Observed); SPE - TOTAL PROTEIN 6.6 g/dL (6.0-8.5)
--- NOTE | 2019-10-07 19:25 | NUR ---
1400 TUPRNED LEVOPHED OFF
--- NOTE | 2019-10-07 19:26 | NUR ---
1500 DR LLOYD RETURNED FIO2 TO 100% PEEP 7 RATE 24
--- NOTE | 2019-10-07 22:22 | NUR ---
spoke with family.
--- NOTE | 2019-10-07 22:32 | NUR ---
1900- report recieved. see adl see assessment. 2100- meds given per mar, lines untangled and lines not being used disconnected
[2019-10-08] VITALS (24 sets, daily range): BP systolic 91–180; BP diastolic 64–89
--- NOTE | 2019-10-08 03:28 | NUR ---
0100- patient intubated sedated. restraints. bed low and locked. no acute distress. 200 on fentnyl.
--- NOTE | 2019-10-08 03:29 | NUR ---
i and o done. reassessment. see adl. patient minimally opens eyes to oral care.
[2019-10-08 05:05] LABS: BASOPHILS 0 % (0-2); EOSINOPHILS 0 % (0-7); IMMATURE GRANULOCYTES 0.8 % (0-5); LYMPHOCYTES 2.1 % (15-50); MCHC 31.7 g/dL (31.0-37.0); MCV 97.6 fL (80.0-100.0); MONOCYTES 2.9 % (2-11); NEUTROPHILS 94.2 % (40-80); PLATELET COUNT 84 10x3/uL (130-400); RDW 15.3 % (11.5-14.5)
[2019-10-08 05:43] LABS: BILIRUBIN - TOTAL 0.65 mg/dL (0.2-1.3); CREATININE - SERUM 2.6 mg/dL (0.6-1.3); MAGNESIUM - SERUM 2.4 mg/dL (1.8-2.4); POTASSIUM - SERUM 3.8 mmol/L (3.5-5.1); PROTEIN - SERUM 4.1 g/dL (6.4-8.2)
[2019-10-08 05:44] LABS: HEMATOCRIT 28.7 % (42.0-54.0); HEMOGLOBIN 9.1 g/dL (13.5-17.5); RBC 2.94 10x6/uL (4.20-6.10); WBC 11.2 10x3/uL (4.8-10.8)
[2019-10-08 06:02] LABS: ALBUMIN 1.5 g/dL (3.4-5.0); CARBON DIOXIDE 31.8 mmol/L (21.0-32.0)
[2019-10-08 06:03] LABS: CALCIUM 6.5 mg/dL (8.5-10.1)
--- NOTE | 2019-10-08 07:00 | NUR ---
pt report received from event marketing intern nurse. no acute signs of distress noted. shift assessment completed. will continue to monitor
--- NOTE | 2019-10-08 09:21 | NUR ---
pt resting in bed. no signs of distress noted. will continue to monitor
--- NOTE | 2019-10-08 13:00 | NUR ---
MELY BRIGHT () CALLED INSTRUCT PT NEEDS A UNIT OF BLOOD. VERBAL CONSENT OBTAINED.
--- NOTE | 2019-10-08 13:10 | NUR ---
DR LLOYD AT BEDSIDE. UPDATE GIVEN. NO ACUTE SIGNS OF DISTRESS NOTED. WILL CONTINUE TO MONITOR
--- NOTE | 2019-10-08 19:20 | NUR ---
RECIVED REPROT. PT IS CALM LAYING IN BED INTUBATED/SEDATED. HIS VSS. ISOLATION PROTOCOL OBSERVED. RESTRATINTS OBSERVED. BAIRD CATHETOR IS BELOW BLADDER AND DRAINING. FULL ASSESSMENT IS DONE AND WILL DOC IN FLOWSHEET. BED IS LOW,SIDE RAISLX2, CALL LIGHT WIHTIN REACH. WILL CONINTUE TO MONITOR
--- NOTE | 2019-10-08 21:36 | NUR ---
PT IS CALM/INTUBATED/SEDATED. VSS. SCHEUDLED MEDS GIVEN THROUGH OG TUBE. RESTRAINTS OBSERVED. BED IS LEFT LOW,SIDE RAISLX2,CALL LIGHT WITHIN REACH. WILL CONINTUE TO MONITOR
--- NOTE | 2019-10-08 23:04 | NUR ---
PT IS RESTING IN BED CALM/INTUBATED/SEDATED. VSS. PROVIDED ORAL CARE, PT TOLERATED WELL. RE-ASSESSMENT DONE AND WILL DOC IN FLOWSHEET. BED IS LEFT LOW,SIDE RAISLX2,CALL LIGHT WITHIN REACH. WILL CONITNUE TO MONITOR
[2019-10-09] VITALS (24 sets, daily range): BP systolic 88–134; BP diastolic 59–86
--- NOTE | 2019-10-09 00:59 | NUR ---
pt is resting in bed calm/intubated/sedated. VSS. bed is low, side railsx2, call light within reach. will continue to monitor
--- NOTE | 2019-10-09 03:13 | NUR ---
PT IS CALM/INTUBATED/SEDATION. VSS. RE-ASSESSMENT DONE AND WILL DOC IN FLOWSHEET. ORAL CARE PROVIDED AND PT TOLERATED WELL. TILTED BED TO LEFT SLIGHTLY TO HELP WITH RELIEF OF PRESSURE SINCE PT DOES NOT TOLERATING TURNING WELL BY PROPPING PILLOWS UNDER. BED IS LEFT LOW,SIDE RAISLX2,CALL LIGHT WITHIN REACH. WILL CONINTUE TO MONITOR.
--- NOTE | 2019-10-09 05:00 | NUR ---
PT IS RESTING CALM/INTUBATED/SEDATED. VSS. ORAL CARE PORVIDED AND TILTED BED TO THE RIGHT TO HELP RELIEVE PRESSURE. SCD'S ARE ON. HEELS BRIDGED OFF BED. BED IS LOW,SIDE RAISLX2,CALL LIGHT WITHIN REACH. WILL CONINTUE TO MONITOR
[2019-10-09 05:05] LABS: BASOPHILS 0.1 % (0-2); EOSINOPHILS 0 % (0-7); HEMATOCRIT 28.9 % (42.0-54.0); HEMOGLOBIN 9.4 g/dL (13.5-17.5); IMMATURE GRANULOCYTES 0.9 % (0-5); LYMPHOCYTES 4.3 % (15-50); MCH 31.5 pg (26.0-34.0); MCHC 32.5 g/dL (31.0-37.0); MEAN PLATELET VOLUME 11.4 fL (7.4-10.4); MONOCYTES 3.6 % (2-11); NEUTROPHILS 91.1 % (40-80); PLATELET COUNT 89 10x3/uL (130-400); RBC 2.98 10x6/uL (4.20-6.10); WBC 11.8 10x3/uL (4.8-10.8)
[2019-10-09 05:18] LABS: PLATELET ESTIMATE DECREASED
[2019-10-09 05:24] LABS: ALBUMIN 1.5 g/dL (3.4-5.0); ANION GAP 3.9 mmol/L (8-16); BILIRUBIN - DIRECT 0.31 mg/dL (0.00-0.30); BILIRUBIN - INDIRECT 0.53 mg/dL (0.00-1.00); BILIRUBIN - TOTAL 0.84 mg/dL (0.2-1.3); CREATININE - SERUM 2.2 mg/dL (0.6-1.3); MAGNESIUM - SERUM 2.6 mg/dL (1.8-2.4); PHOSPHOROUS 3.2 mg/dL (2.5-4.9); POTASSIUM - SERUM 3.9 mmol/L (3.5-5.1); PROTEIN - SERUM 3.9 g/dL (6.4-8.2)
[2019-10-09 05:25] LABS: CALCIUM 6.8 mg/dL (8.5-10.1)
--- NOTE | 2019-10-09 06:36 | NUR ---
PT IS CALM/INTUBATED/SEDATED. VSS. NO DISTRESS NOTED. BED IS LOW,SIDE RAISLX2,CALL LIGHT WITHIN REACH. WILL CONTINUE TO MONITOR
--- NOTE | 2019-10-09 07:41 | NUR ---
REPORT RECEIVED FROM OUTGOING SENIOR SALES EXECUTIVE COMPLETE
--- NOTE | 2019-10-09 12:47 | NUR ---
0900 RMAINS ON VENT FIO2 100% O2 SAT 1000% ALSO
--- NOTE | 2019-10-09 12:48 | NUR ---
1100 TOLERATING TUBE FEEDING RESIDUAL 5ML
--- NOTE | 2019-10-09 12:52 | NUR ---
1200 DR LLOYD ROUNDING ON PT DECREASED FIO2 TO 80%, PEEP 7
--- NOTE | 2019-10-09 17:45 | NUR ---
1400 CBS 142 NO COVERAGE INDICATED
--- NOTE | 2019-10-09 17:46 | NUR ---
1600 CENTRAL LINE DRESSING CHANGED
--- NOTE | 2019-10-09 19:00 | NUR ---
RECIVED SHIFT REPORT. ISOLATION PROTOCOL OBSERVED. PT IS CALM/INTUBATED/SEDATED. NO DISTRESS NOTED. HIS VSS. RESTRAINTS OBSERVED WITH WARM PINK EXTREMITES BILAT. BAIRD CATHETOR TO GRAVITY DRAINING DARK YELLOW URINE. LEFT SUB-CLAVIN CDI. TUBE FEEDING GOING THROUGH OGT. FULL ASSESSMENT PERFORMED AND WILL DOC IN [facility]. BED IS LOW,SIDE RAILSX2,CALL LIGHT WITHIN REACH. BED ALARM IS ON
--- NOTE | 2019-10-09 21:11 | NUR ---
PT IS RESTING CALM/INTUBATE/SEDATED. ADMINSITERING SCHEUDLED MEDS. VSS. REPOSTIONED FOR COMFORT. SCD'S ARE ON. HEELS BRIDGED OFF BED. BED IS LOW,SIDE RAISLX2,CALL LIGHT WITHIN REACH. WILL CONITNUE TO MONITOR
--- NOTE | 2019-10-09 22:52 | NUR ---
PT IS RESTING CALM/INTUBATED/SEDATED. DECREASED FENTLYLE TO 350MCG/MIN AT THIS TIME TO SEE HOW PT DOES. OARL CARE PROVIDED AND TOLERATED WELL. TURNED FOR COMFORT. HEELS ARE BRIDGED OFF BED. RE-ASSESSMENT DONE AND WILL CHART IN FLOWSHEET. BED IS LEFT LOW,SIDE RAISLX2,CALL LIGHT WITHIN REACH. WILL CONITNUE TO MONITOR
[2019-10-10] VITALS (25 sets, daily range): BP systolic 85–124; BP diastolic 56–88
--- NOTE | 2019-10-10 00:32 | NUR ---
PT SEDATED ON VENT SUPPORT, VSS, NO CHANGES NOTED
--- NOTE | 2019-10-10 01:02 | NUR ---
PT IS RESTING/CALM/INTUBATED/SEDATED. VSS. NO DISTRESS NOTED. BED IS LOW,SIDE RAISLX2,CALL LIGHT WITHIN REACH. WILL CONITNUE TO MONITOR
--- NOTE | 2019-10-10 03:00 | NUR ---
PT IS CALM/INTUBATED/SEDATED. VSS. PROVIDED FULL BED BATH AT THIS TIME WITH HCG CLEANSER. BAIRD CATHETOR CARE PROVIDED, SECURED TO UPPER THIGH. UPON ROLLING OVER HE DOES HAVE A SMALL RED NONBLANCHABLE SPOT ON HIS COCCYX. APPLIED MEPAPLEX AND TURNED PT ONTO HIS LEFT SIDE WITH POSITIONAL BLOCKS AT THIS TIME. VS REMAINDED STABLE. BED WAS LEFT LOW,SIDE RAISLX2,CALL LIGHT WITHIN REACH. WILL CONINTUE TO MONITOR
--- NOTE | 2019-10-10 05:00 | NUR ---
PT IS RESTING CALM/INTUBATED/SEDATED. VSS. NO DISTRESS. BED IS LOW,SIDE RAILSX2,CALL LIGHT WITHIN REACH.
--- NOTE | 2019-10-10 07:00 | NUR ---
PT IS RESTING/CALM/INTUBATED/SEDATED. NO DISTRESS NOTED. BED IS LOW,SIDE RAISLX2,CALL LIGHT WIHTIN REACH.
[2019-10-10 10:24] LABS: BASOPHILS 0.1 % (0-2); EOSINOPHILS 0 % (0-7); HEMATOCRIT 31.5 % (42.0-54.0); HEMOGLOBIN 9.9 g/dL (13.5-17.5); IMMATURE GRANULOCYTES 1.5 % (0-5); LYMPHOCYTES 4.4 % (15-50); MCH 30.8 pg (26.0-34.0); MCHC 31.4 g/dL (31.0-37.0); MCV 98.1 fL (80.0-100.0); MEAN PLATELET VOLUME 11.7 fL (7.4-10.4); MONOCYTES 4.2 % (2-11); NEUTROPHILS 89.8 % (40-80); RBC 3.21 10x6/uL (4.20-6.10); RDW 15.4 % (11.5-14.5)
[2019-10-10 10:27] LABS: PLATELET COUNT 123 10x3/uL (130-400); WBC 15.6 10x3/uL (4.8-10.8)
[2019-10-10 10:37] LABS: ALBUMIN 1.6 g/dL (3.4-5.0); ANION GAP 4.8 mmol/L (8-16); BILIRUBIN - TOTAL 0.87 mg/dL (0.2-1.3); CARBON DIOXIDE 33.2 mmol/L (21.0-32.0); MAGNESIUM - SERUM 2.6 mg/dL (1.8-2.4); PHOSPHOROUS 3.3 mg/dL (2.5-4.9); PROTEIN - SERUM 4.3 g/dL (6.4-8.2)
[2019-10-10 10:40] LABS: CALCIUM 6.8 mg/dL (8.5-10.1)
--- NOTE | 2019-10-10 12:28 | NUR ---
0900 BLOOD SPECEMIN SENT TO LAB FOR ALL LABS
--- NOTE | 2019-10-10 12:29 | NUR ---
1100 DR PREMA GUEVARA IN ICU
--- NOTE | 2019-10-10 17:28 | NUR ---
1300 ORAL CARE PROVIDED MOUTH WITH SCABS THAT BLEED WITH TOUCH
--- NOTE | 2019-10-10 17:29 | NUR ---
1500 CBS 172 COVERED WITH 2 UNITS HUMULIN INSULIN
--- NOTE | 2019-10-10 17:31 | NUR ---
1700 NOTIFIED PHARMACY RE ACTEMRA 400 X 2 DOSES. HE SAID HE WILL SPEAK WITH KIT IN AM REGARDING THIS MED THAT DR LLOYD REQUESTED. SENT DR LLOYD A MESSAGE REGARDING THIS DRUG
--- NOTE | 2019-10-10 17:34 | NUR ---
1705 NOTIFIED THE LAB REGARDING UNIT OF [facility] FOR COVID-19 PATIENT. THEY LEFT MESSAGE FOR GEOVANY RESEARCH AIDE
--- NOTE | 2019-10-10 21:38 | NUR ---
1900 PT ASSESSMENT COMPLETED AT THIS TIME, NO CHANGES NOTED FROM NURSE REPORT, PT IS SEDATED ON VENT SUPPORT WILL RESPOND TO PAINFUL STIMULATION. VSS, WILL MONITOR FOR CHANGES. 2100 PT GIVEN MEDS DOWN NGT, PLACEMENT VERIFIED BY AUSCULTATION OVER GASTRIC AREA. NO RESIDUAL NOTED ON ASPIRATION. PT REMAINS SEDATED AND ON VENT SUPPORT, VSS, WILL MONITOR FOR CHANGES
[2019-10-11] VITALS (24 sets, daily range): BP systolic 82–124; BP diastolic 42–90
--- NOTE | 2019-10-11 01:00 | NUR ---
PT SEDATED ON VENT SUPPORT, NO CHANGES NOTED, VSS
--- NOTE | 2019-10-11 03:00 | NUR ---
PT REASSESSMENT COMPLETED AT THIS TIME, NO CHANGES NOTED FROM PREVIOUS EXAM,, VSS
--- NOTE | 2019-10-11 04:00 | NUR ---
WHILE COLLECTING I&O PT OUTPUT WAS NOT TO BE ONLY 160ML AND ABD WAS MORE FIRM, BAIRD WAS ATTEMPTED TO BE FLUSHED BUT WAS UNABLE TO FLUSH, F/C WAS REPLACED AND DARK COLORED URINE RETUNED, FOLLOWED BY BLOODY URINE. AMOUNT RETUNED WAS 940
--- NOTE | 2019-10-11 05:20 | NUR ---
PT GIVEN CHG BATH AT THIS TIME, WITH LINEN CHANGED
[2019-10-11 05:22] LABS: BASOPHILS 0.1 % (0-2); EOSINOPHILS 0 % (0-7); HEMATOCRIT 30.8 % (42.0-54.0); HEMOGLOBIN 9.8 g/dL (13.5-17.5); IMMATURE GRANULOCYTES 2.1 % (0-5); LYMPHOCYTES 2.4 % (15-50); MCH 31.7 pg (26.0-34.0); MCHC 31.8 g/dL (31.0-37.0); MCV 99.7 fL (80.0-100.0); MEAN PLATELET VOLUME 12.3 fL (7.4-10.4); MONOCYTES 5.2 % (2-11); NEUTROPHILS 90.2 % (40-80); RBC 3.09 10x6/uL (4.20-6.10); RDW 15.4 % (11.5-14.5)
[2019-10-11 05:31] LABS: PLATELET COUNT 164 10x3/uL (130-400)
[2019-10-11 05:44] LABS: ALBUMIN 1.7 g/dL (3.4-5.0); BILIRUBIN - TOTAL 0.85 mg/dL (0.2-1.3); CARBON DIOXIDE 28.1 mmol/L (21.0-32.0); CREATININE - SERUM 2.2 mg/dL (0.6-1.3); PROTEIN - SERUM 4.3 g/dL (6.4-8.2)
[2019-10-11 06:31] LABS: ANION GAP 20.1 mmol/L (8-16); POTASSIUM - SERUM 4.2 mmol/L (3.5-5.1)
[2019-10-11 06:32] LABS: CALCIUM 7.2 mg/dL (8.5-10.1)
--- NOTE | 2019-10-11 10:29 | NUR ---
0700 REPORT RECEIVED FROM NIGHT [employer] SALES REPRESENTATIVE COMPLETE
--- NOTE | 2019-10-11 10:30 | NUR ---
[address] RIBEIRO RE PAPERWORK THAT HE NEEDS TO FILL OUT TO OBTAIN RELEASE OF COVALESCENT PLASMA FOR THIS PATIENT
--- NOTE | 2019-10-11 10:31 | NUR ---
1030 SPOKE WITH AND DAUGHTER ON PHONE PROVIDING UPDATE ON WHEN TO EXPECT PLASMA TO BE DELIVERED INFORMED THEM THAT THEY WILL RECEIVE A CALL AFTER LUNCH AND AROUND 1700 FROM [facility] AND AGAIN IN THE EVENING FROM WORKFORCE MANAGER
--- NOTE | 2019-10-11 10:46 | NUR ---
Nutrition follow-up: Intubated, sedated w/ propofol @ 3.3 ml/hr OGT in place with Nepro at goal rate of 40 ml/hr Labs reviewed Wt: 181# RDN following.
--- NOTE | 2019-10-11 14:45 | NUR ---
LAB IN TO DRAW BLOOD.
--- NOTE | 2019-10-11 18:46 | NUR ---
1830 URINE SPECIMEN COLLECTED AND SENT TO LAB FOR UA C/S
[2019-10-11 18:55] LABS: BILIRUBIN NEGATIVE (NEGATIVE); GLUCOSE 100 mg/dL (NEGATIVE); KETONE NEGATIVE (NEGATIVE); NITRITE NEGATIVE (NEGATIVE); UROBILINOGEN NORMAL (NORMAL)
[2019-10-11 19:07] LABS: RED CELLS - URINE 25-50 /hpf (0-5)
[2019-10-11 19:08] LABS: BACTERIA FEW /hpf (NEGATIVE)
--- NOTE | 2019-10-11 19:30 | NUR ---
PT SEDATED, AROUSES BRIEFLY TO STIMULI, ETT PATENT TO VENT, LEFT CVL INTACT WITH IVF'S INFUSING, OGT IN PLACE WITH NEPRO @ 20 CC/HR, LEFT A-LINE INTACT AND ZEROED, BILAT SWR IN USE, GENERALIZED EDEMA, BAIRD PATENT TO BSD, SCD'S TO BILAT LOWER LEGS, WILL CONT TO MONITOR
--- NOTE | 2019-10-11 21:00 | NUR ---
CALLED PT FAMILY AND GAVE UPDATE, ANSWERED QUESTIONS R/T PT STATUS
[2019-10-12] VITALS (63 sets, daily range): BP systolic 81–174; BP diastolic 50–873
[2019-10-12 05:21] LABS: BASOPHILS 0.1 % (0-2); EOSINOPHILS 0.1 % (0-7); HEMATOCRIT 28.3 % (42.0-54.0); HEMOGLOBIN 8.8 g/dL (13.5-17.5); IMMATURE GRANULOCYTES 1.6 % (0-5); LYMPHOCYTES 3.7 % (15-50); MCH 30.9 pg (26.0-34.0); MCHC 31.1 g/dL (31.0-37.0); MCV 99.3 fL (80.0-100.0); MEAN PLATELET VOLUME 11.8 fL (7.4-10.4); NEUTROPHILS 91.5 % (40-80); PLATELET COUNT 161 10x3/uL (130-400); RBC 2.85 10x6/uL (4.20-6.10); RDW 14.8 % (11.5-14.5); WBC 16.4 10x3/uL (4.8-10.8)
[2019-10-12 05:33] LABS: ALBUMIN 1.7 g/dL (3.4-5.0); ANION GAP 8.9 mmol/L (8-16); BILIRUBIN - TOTAL 0.59 mg/dL (0.2-1.3); CARBON DIOXIDE 30.5 mmol/L (21.0-32.0); CREATININE - SERUM 1.8 mg/dL (0.6-1.3); POTASSIUM - SERUM 4.4 mmol/L (3.5-5.1); PROTEIN - SERUM 4.2 g/dL (6.4-8.2)
--- NOTE | 2019-10-12 06:22 | NUR ---
PT REMAINS SEDATED, NO DISTRESS NOTED, VITALS STABLE
--- NOTE | 2019-10-12 07:20 | NUR ---
REPORT RECEIVED. PT INTUBATED. SETTINGS PER RT. HE HAS AN OGT WITH NEPRO INFUSING AT 30ML/HR. PT HAS A LEFT SUBCLAVIAN WITH PROPOFOL, D5W, AND FENTANYL DIESEL PILE HAMMER OPERATOR INFUSING. PT GETS FSBS Q6H. HE IS POSITIVE FOR COVID AND IS ON DROPLET/COVID PRECAUTIONS. PT HAS A BAIRD. BED IN LOWEST POSITION. SIDE RAILS UP X2.
--- NOTE | 2019-10-12 08:30 | NUR ---
PER DR PALMA, CHANGED RATE OF IVF FROM 125ML/HR TO 50ML/HR. INSTRUCTED TO START FREE WATER FLUSHES ON PT AT 30ML/HR. PROGRAMMED INTO FEEDING PUMP. WILL CONTINUE TO MONITOR.
--- NOTE | 2019-10-12 09:37 | NUR ---
ART LINE AND CVP ZEROED. CVP 12-13. ART LINE IS SHOWING LOW BLOOD PRESSURES. DR DEMARCO IN ICU. DISCUSSED STARTING LEVOPHED ON PT.
--- NOTE | 2019-10-12 10:08 | NUR ---
PT RESPONDING TO LEVOPHED. BP NOW 123/76. WILL CONTINUE TO MONITOR.
--- NOTE | 2019-10-12 12:30 | NUR ---
SPOKE WITH PT'S DAUGHTER AND . UPDATED. WOULD LIKE TO SPEAK WITH DR DEMARCO WHEN HE ROUNDS.
--- NOTE | 2019-10-12 12:58 | NUR ---
BLOOD NOTED TO ETT. DR DEMARCO MADE AWARE. NO NEW ORDERS AT THIS TIME. WILL CONTINUE TO MONITOR.
--- NOTE | 2019-10-12 14:49 | NUR ---
CHANGED TUBE FEED LINES AND BAGS. INSULIN GIVEN FOR ELEVATED BLOOD SUGAR PER ORDER. WILL CONTINUE TO MONITOR.
--- NOTE | 2019-10-12 17:27 | NUR ---
IS AND OS DONE. CATHETER EMPTIED. VSS. ON LEVOPHED. WILL CONTINUE TO MONITOR.
[2019-10-12 18:08] LABS: UPE RAND - ALPHA 1 GLOBULIN 6.5 % (()); UPE RAND - ALPHA 2 GLOBULIN 28.3 % (()); UPE RAND - BETA GLOBULIN 17.5 % (()); UPE RAND - GAMMA GLOBULIN 20.6 % (())
--- NOTE | 2019-10-12 19:30 | NUR ---
PT SEDATED, ETT PATENT TO VENT, LUNGS CLEAR, LEFT CVL INTACT WITH IVF'S INFUSING, OGT IN PLACE WITH NEPRO @ 30 CC/HR, BAIRD PATENT TO BSD, GENERALIZED EDEMA, SCD'S TO BILAT LOWER LEGS, WILL CONT TO MONITOR
--- NOTE | 2019-10-12 20:50 | NUR ---
CALLED STATUS UPDATE TO PT'S FAMILY, QUESTIONS ANSWERED
--- NOTE | 2019-10-12 23:35 | NUR ---
PT SPO2 DOWN TO 79%, LAVAGED AND SUCTIONED, SMALL CLOTS NOTED IN SPUTUM, 02 INCREASED TO 100% FIO2
[2019-10-13] VITALS (83 sets, daily range): BP systolic 90–149; BP diastolic 54–108
[2019-10-13 05:38] LABS: HEMATOCRIT 30.1 % (42.0-54.0); HEMOGLOBIN 9.5 g/dL (13.5-17.5); MCH 31.4 pg (26.0-34.0); MCHC 31.6 g/dL (31.0-37.0); MCV 99.3 fL (80.0-100.0); MEAN PLATELET VOLUME 11.2 fL (7.4-10.4); PLATELET COUNT 252 10x3/uL (130-400); RBC 3.03 10x6/uL (4.20-6.10); RDW 14.7 % (11.5-14.5); WBC 24.2 10x3/uL (4.8-10.8)
[2019-10-13 05:48] LABS: ALBUMIN 1.9 g/dL (3.4-5.0); ANION GAP 8.7 mmol/L (8-16); BILIRUBIN - TOTAL 0.6 mg/dL (0.2-1.3); CALCIUM 7.7 mg/dL (8.5-10.1); CARBON DIOXIDE 29.8 mmol/L (21.0-32.0); CREATININE - SERUM 1.5 mg/dL (0.6-1.3); POTASSIUM - SERUM 4.5 mmol/L (3.5-5.1); PROTEIN - SERUM 4.8 g/dL (6.4-8.2)
[2019-10-13 06:45] LABS: LYMPHOCYTES 5 % (15-50); MONOCYTES 1 % (2-11); NEUTROPHILS 94 % (40-80); PLATELET ESTIMATE NORMAL
[2019-10-13 06:46] LABS: ANISOCYTOSIS OCC; SCHISTOCYTES OCC; TEAR DROP CELLS OCC
--- NOTE | 2019-10-13 07:17 | NUR ---
REPORT RECIEVED FROM OFF GOING NURSE AND PATIENT CARE ASSUMED. PATIENT LAYNG IN BED ON BACK WITH EYES CLOSED AND ON VENT AC R24 100% TV 500 PEEP 10. WILL CONTINUE WITH PLAN OF CARE. SR UPX 2 BED IN LOW POSITION AND CALL LIGHT IN REACH.
--- NOTE | 2019-10-13 07:30 | NUR ---
DR PALMA ON UNIT. NEW ORDERS RECIEVED.
--- NOTE | 2019-10-13 09:00 | NUR ---
PATIENT VSS. ASSESSMENT COMPLETED. SEE CHART. WILL CONTINUE TO MONITOR. AR UPX 2 BED IN LOW POSITION AND CALL LIGHT IN REACH.
--- NOTE | 2019-10-13 09:42 | NUR ---
PATIENTS AND DTR CALLED. SPENT MORE THAN 10 MINUTES ON PHONE ANSWERING QUESTIONS TO SATISFACTION. QUESTIONED ABOUT CONVALESCENT PLASMA INFUSION AND IF NEW MED TAMOXIFICAB AVAILABLE FROM PHARMACY YET. INFORMED THAT PLASMA FORMS IN PROCESS OF BEING COMPLETED AND THIS NURSE NOT AWARE OF NEW MED OR AVAIALBILITY. STATED THAT I WILL SPEAK WITH PHYSICIAN OR PHARMACY. FAMILY THANKED THIS NURSE FOR CARE AND INFORMATION.
--- NOTE | 2019-10-13 10:30 | NUR ---
DR DEMARCO ON UNIT. NEW ORDERS RECEIVED.
--- NOTE | 2019-10-13 11:00 | NUR ---
RE-ASSESMENT COMPLETED. VSS. WILL CONTINUE TO MONITOR. SR UP X 2 BED IN LOW POSITION AND CALL LIGHT IN REACH.
[2019-10-13 11:44] LABS: C-REACTIVE PROTEIN 16.3 mg/dL (0.0-0.9)
--- NOTE | 2019-10-13 12:22 | NUR ---
Nutrition follow-up: Pt remains intubated, sedated Nepro infusing @ 40 ml/hr goal rate Labs reviewed Wt: 200# RDN following.
--- NOTE | 2019-10-13 14:30 | NUR ---
DR HILLMAN ON UNIT. NO NEW ORDERS RECEIVED.
--- NOTE | 2019-10-13 15:00 | NUR ---
RE-ASSESMENT COMPLETED. SEE ASSESSMENT FOR DETAILS. VSS. WILL CONTINUE TO MONITOR. SR UP X 2 BED IN LOW POSITION AND CALL LIGHT IN REACH.
--- NOTE | 2019-10-13 17:50 | NUR ---
PATIENT IS UNCHANGED. VSS. WILL CONTINUE TO MONITOR. SR UP X2 BED IN LOW POSITION AND CALL LIGHT IN REACH.
--- NOTE | 2019-10-13 19:30 | NUR ---
PT SEDATED, ETT PATENT TO VENT, LUNGS CLEAR, LEFT TLSC INTACT WITH IVF'S INFUSING, OGT IN PLACE WITH NEPRO @ 35 CC/HR, LEFT A-LINE INTACT BUT UNABLE TO GET AN ACCURATE READING, CUFF PRESSURE WITHIN PARAMETERS, GENERALIZED EDEMA NOTED, BAIRD PATENT TO BSD, MEPILEX DRSG TO COCCYX, SCD'S TO BILAT LOWER LEGS, WILL CONT TO MONITOR
--- NOTE | 2019-10-13 20:50 | NUR ---
CALLED UPDATE TO PT FAMILY, FAMILY CONCERNED ABOUT COVID PLASMA ORDERED, FAMILY SPOKE WITH CHARGE NURSE, PAPERWORK SENT TO FDA TODAY, AWAITNG APPROVAL NUMBER
[2019-10-14] VITALS (35 sets, daily range): BP systolic 95–163; BP diastolic 54–99
[2019-10-14 05:00] LABS: BASOPHILS 0.1 % (0-2); EOSINOPHILS 0 % (0-7); HEMATOCRIT 32.4 % (42.0-54.0); HEMOGLOBIN 10.2 g/dL (13.5-17.5); IMMATURE GRANULOCYTES 2.2 % (0-5); LYMPHOCYTES 4.7 % (15-50); MCH 31.6 pg (26.0-34.0); MCHC 31.5 g/dL (31.0-37.0); MCV 100.3 fL (80.0-100.0); MEAN PLATELET VOLUME 11.2 fL (7.4-10.4); MONOCYTES 2.3 % (2-11); NEUTROPHILS 90.7 % (40-80); PLATELET COUNT 328 10x3/uL (130-400); RBC 3.23 10x6/uL (4.20-6.10); RDW 14.6 % (11.5-14.5); WBC 24.5 10x3/uL (4.8-10.8)
[2019-10-14 05:11] LABS: ALBUMIN 2.1 g/dL (3.4-5.0); BILIRUBIN - TOTAL 0.68 mg/dL (0.2-1.3); CALCIUM 8.1 mg/dL (8.5-10.1); CARBON DIOXIDE 30.3 mmol/L (21.0-32.0); CREATININE - SERUM 1.5 mg/dL (0.6-1.3); PROTEIN - SERUM 5.2 g/dL (6.4-8.2)
[2019-10-14 05:12] LABS: ANION GAP 16.9 mmol/L (8-16); POTASSIUM - SERUM 5.2 mmol/L (3.5-5.1)
--- NOTE | 2019-10-14 07:00 | NUR ---
REPORT RECIEVED FROM INTERVENTION MANAGER AND PATIENT CARE ASSUMED. PATIENT LAYING IN BED ONLEFRT SIDE WITH EYES CLOSED AND BREATHING EVENLY. VENT IN PLACE SZ 8 22 CM AT LIPLINE FIO2@70% TV 500, PEEP 10 RATE 24. 02 SAT 95% . IV'S INFUSING DIPROVAN @ 5, FENTANYL @ 400 AND NS AT KVO. LEVOPHED ON HOLD. BAIRD CATHETER IN PLACE AND DRAINING YELLOW CLEAR LIQUID. WRIST RESTAINTS IN PLACE. WILL CONTINUE WITH PLAN OF CARE. SR UP X2 BED IN LOW POSITION AND CALL LIGHT IN REACH.
--- NOTE | 2019-10-14 07:13 | NUR ---
PEG TUBE FEEDING IN PLACE AT 35 ML NEPRO WITH 30 ML FLUSH HOURLY.
--- NOTE | 2019-10-14 07:30 | NUR ---
DR PALMA ON UNIT. NEW ORDERS RECEIVED TO INCREASE NEPRO TO 40 ML FEEDING AND 45 FLUSH Q HOUR AND TO START D5W BACK.
--- NOTE | 2019-10-14 09:00 | NUR ---
ASSESSMENT COMPLETED. SEE SHEET. PATIENT REPOSITIONED FOR COMFORT. WILL CONTINUE TO MONITOR. SR UP X 2 BED IN LOW POSITION AND CALL LIGHT IN REACH.
--- NOTE | 2019-10-14 09:00 | NUR ---
ASSESSMENT COMPLETED. SEE ASSESSMENT SHEET. PATIENT REPOSITIONED FOR COMFORT. WILL CONTINUE TO MONITOR. SR UPX 2 BED IN LOW POSITION AND CALL LIGHT IN REACH .
--- NOTE | 2019-10-14 09:30 | NUR ---
DR DEMARCO ON UNIT. NO NEW ORDERS RECEIVED. DR DEMARCO SPOKE WITH PATIENT AND DTR ON PHONE. DR DEMARCO SPENT MORE THAN 10 MINUTES ON PHONE.
--- NOTE | 2019-10-14 11:00 | NUR ---
PATIENT REPOSITONED TO LEFT SIDE. VSS. BAIRD CARE COMPLETED. WILL CONTINUE TO MONITOR. SR UP X 2 BED IN LOW POSITON AND CALL LIGHT IN REACH.
--- NOTE | 2019-10-14 12:30 | NUR ---
PATIENT BATHED , CHANGED GOWN AND COMPLETE LINEN CHANGE. ORAL CARE PERFORMED. REPOSITONED TGO RT SIDE WITH HOB ELEVATED 30 DEGREES.
--- NOTE | 2019-10-14 14:45 | NUR ---
RE-ASSESMENT COMPLETED. VSS. VENT SETTINGS UNCAHGED. REPOSITIONED PATIENT TO BACK WITH HOB ELEVATED 30 DEGREES.
--- NOTE | 2019-10-14 18:45 | NUR ---
AT 1630 PATIENT DESATED TO 72 HR 51. NOTIFIED RT ENTERED ROOM QUICKLY. RT DETERMINED THAT CUFF LEAKING. CONTACTED DR DEMARCO. NEW ORDER RECEIVED TO CHANGE ETT TUBE. DR ARGUELLO ANESTHESIA IN ROOM. ETT TUBE CHANGED WITHOUT DIFFICULTY. ART LINE NOT WORKING PROPERLY. DR ARGUELLO DC LINE TO LT RADIAL NEW ARTLINE TO LT GROIN WITHOUT DIFFICULTY. DURING PROCEDURE CVL ACCIDENTLY PULLED OUT. PRESSURE DRSG APPLIED. NEW IV SITE TO RT AC, LT CHEST AND LT FOREARM. VENT SETTINGS CHANGED TO FIO2 100% PEEP 12 TV 500 O02 SAT 97%. VSS. WILL CONTINUE TO MONITOR. SR UP X 2 BED IN LOW POSTION AND CALL LIGHT IN REACH. CALLED FAMILY AND GAVE UPDATE.
--- NOTE | 2019-10-14 19:00 | NUR ---
REPORT RECEIVED. PT SEDATED ON VENT. SOFT WRIST RESTRAINTS IN PLACE. A-LINE IN LT GROIN, ZERO'D, GOOD WAVEFORM. MULTIPLE PIV'S INFUSING, SEE IV FLOWSHEET. ASSESSMENT COMPLETED, SEE FLOWSHEET. WILL CONTINUE TO MONITOR.
--- NOTE | 2019-10-14 19:10 | NUR ---
BP 201/105. CALLED AND SPOKE WITH KELSIE DESIR WHEEL CUTTER FOR DR JULES. NEW ORDER RECEIVED FOR HYDRALIZINE 10 MG IV . REPORT GIVEN TO OFF GOING NURSE.
--- NOTE | 2019-10-14 21:11 | NUR ---
ATTEMPTED TO PLACE NGT/OGT 3 ATTEMPTS, PT PROCURED BLOODY THICK SPUTUM OUT OF MOUTH AND THROAT, NOT ABLE TO INSERT TUBE. PAGED THANG CARRILLO APN REGARDING PO MEDS, AWARE OF SITUAITION. WILL CONTINUE TO MONITOR.
--- NOTE | 2019-10-14 21:57 | NUR ---
SPOKE WITH FAMILY MEMBER FOR UPDATE ON PT STATUS.
--- NOTE | 2019-10-14 23:00 | NUR ---
REASSESSMENT COMPLETED, SEE FLOWSHEET.
[2019-10-15] VITALS (24 sets, daily range): BP systolic 92–186; BP diastolic 50–97
--- NOTE | 2019-10-15 01:00 | NUR ---
NO CHANGES IN PATIENT STATUS AT THIS TIME. WILL CONTINUE TO MONITOR.
--- NOTE | 2019-10-15 03:00 | NUR ---
REASSESSMENT COMPLETED, SEE FLOWSHEET.
--- NOTE | 2019-10-15 05:00 | NUR ---
PT SEDATED ON VENT. A-LINE ZERO'D, GOOD WAVEFORM.
[2019-10-15 06:53] LABS: ALBUMIN 2.3 g/dL (3.4-5.0); ANION GAP 9.2 mmol/L (8-16); BILIRUBIN - TOTAL 0.79 mg/dL (0.2-1.3); CALCIUM 8.6 mg/dL (8.5-10.1); CARBON DIOXIDE 30.4 mmol/L (21.0-32.0); CREATININE - SERUM 1.3 mg/dL (0.6-1.3); POTASSIUM - SERUM 4.6 mmol/L (3.5-5.1); PROTEIN - SERUM 5.2 g/dL (6.4-8.2)
[2019-10-15 06:59] LABS: HEMATOCRIT 29.7 % (42.0-54.0); HEMOGLOBIN 9.4 g/dL (13.5-17.5); MCH 31.8 pg (26.0-34.0); MCHC 31.6 g/dL (31.0-37.0); MCV 100.3 fL (80.0-100.0); MEAN PLATELET VOLUME 11.4 fL (7.4-10.4); PLATELET COUNT 279 10x3/uL (130-400); RBC 2.96 10x6/uL (4.20-6.10); RDW 14.5 % (11.5-14.5)
--- NOTE | 2019-10-15 07:10 | NUR ---
REPORT RECEIVED FROM LIEN SEARCHER AND PATIENT CARE ASSUMED. PATIENT LAYING IN BED ON BACK WITH HOB ELEVATED [address] SZ 8 22CM AT MIDLINE LIP AC 24 TV 500 FIO2 100% PEEP 12. BP 160/81 HR 57 02Sat 99% R 23. D5W @50 ML/HR DIPROVAN 10MCG. WILL CONTINUE TO MONITOR. BAIRD DRAINING CLEAR YELLOW URINE. ABDON WRIST RESTRAINTS IN PLACE. WILL CONTINUE WITH PLAN OF CARE. SR UPX 2 BED IN LOW POSITION AND CALL LIGHT IN REACH.
[2019-10-15 07:24] LABS: LYMPHOCYTES 3 % (15-50); NEUTROPHILS 95 % (40-80); PLATELET ESTIMATE NORMAL
[2019-10-15 07:25] LABS: TEAR DROP CELLS OCC
--- NOTE | 2019-10-15 08:30 | NUR ---
DR PALMA ON UNIT. NO NEW ODERS RECEIVED.
--- NOTE | 2019-10-15 09:00 | NUR ---
ASSESSMENT COMPLETED. SEE SHEET. WILL CONTINUE TO MONITOR. SR UP X 2 BED IN LOW POSITION AND CALL LIGHT IN REACH.
--- NOTE | 2019-10-15 10:30 | NUR ---
DR DEMARCO ON UNIT. NO NEW ORDERS RECEIVED.
--- NOTE | 2019-10-15 11:00 | NUR ---
RE-ASSESSMENT COMPLETED. SEE SHEET. WILL CONTINUE TO MONITOR. SR UPX 2 BED IN LOW POSITION AND CALL LIGHT IN REACH.
--- NOTE | 2019-10-15 11:01 | NUR ---
Nutrition follow-up: Pt currently NPO 2/2 OGT out Nepro @ 40 ml/hr had been infusing Pt remains intubated Labs reviewed Wt: 198# Will need NGT/OGT replace and tube restarted. RDN following.
--- NOTE | 2019-10-15 12:30 | NUR ---
DR HILLMAN ON UNIT. NO NEW ORDERS RECEIVED.
--- NOTE | 2019-10-15 13:00 | NUR ---
PATIENT GIVEN COMPLETE BED BATH AND LINEN CHANGE. PATIENT TOLERATED WELL. VSS. REPOSITONED FOR COMFORT. WILL CONTINUE TO MONITOR. SR UP X 2 BED IN LOW POSITION AND CALL LIGHT IN REACH.
--- NOTE | 2019-10-15 15:00 | NUR ---
RE-ASSESSMENT COMPLETED. PATIENT IS STABLE AND VSS. REPOSITIONED FOR COMFORT.
--- NOTE | 2019-10-15 17:45 | NUR ---
PATIENT IS STABLE AND VSS. SPOKE WITH FAMILY AND ANSWERED QUESTIONS TO SATISFACTION. FAMILY THANKED THIS NURSE FOR CARE. REPOSITONE DFOR COMFORT. SR UPX 2 BED IN LOW POSITON AND CALL LIGHT IN REACH.
--- NOTE | 2019-10-15 19:15 | NUR ---
CALLED AND SPOKE WITH DR DEMARCO. CLARIFIED CONTINUED TO HOLD NEPRO UNTIL TOMORROW AND REASSESEMNT. INFORMED OFF GOING NURSE.
--- NOTE | 2019-10-15 20:56 | NUR ---
CALLED KOBE NOEL, AND GIVEN UPDATE
--- NOTE | 2019-10-15 22:00 | NUR ---
DR. DEMARCO ON PHONE. UPDATE GIVEN. NO CHANGES
[2019-10-16] VITALS (24 sets, daily range): BP systolic 90–183; BP diastolic 52–102
--- NOTE | 2019-10-16 03:21 | NUR ---
1900-ASSESSMENT COMPLETED. CONT IN VENT. VSS. ART LINE ZEROED. GOOD WAVEFORM 2300-REASSESSMENT COMPLETED. NO CHANGES 0100- VSS. NO CHANGES. TOOK OUT PIV D/T LEFT SUBCLAVIAN BEING USED NOW. 0300- OGT PLACED WITH ANY DIFFICULTY. PLACEMENT CHECKED VIA AUSCULTATION WITH 2 NURSES. REPOSITIONED AND ORAL CARE PROVIDED EVERY 2 HOURS.
[2019-10-16 05:19] LABS: BASOPHILS 0.1 % (0-2); EOSINOPHILS 0.1 % (0-7); HEMATOCRIT 31.9 % (42.0-54.0); IMMATURE GRANULOCYTES 1.1 % (0-5); MCH 31.5 pg (26.0-34.0); MCHC 31.3 g/dL (31.0-37.0); MCV 100.6 fL (80.0-100.0); MONOCYTES 2.2 % (2-11); NEUTROPHILS 92.5 % (40-80); PLATELET COUNT 354 10x3/uL (130-400); RBC 3.17 10x6/uL (4.20-6.10); RDW 14.6 % (11.5-14.5)
[2019-10-16 05:30] LABS: ANION GAP 7.5 mmol/L (8-16); CALCIUM 8.3 mg/dL (8.5-10.1); CARBON DIOXIDE 31.4 mmol/L (21.0-32.0); CREATININE - SERUM 1.2 mg/dL (0.6-1.3); PHOSPHOROUS 3.8 mg/dL (2.5-4.9); POTASSIUM - SERUM 4.9 mmol/L (3.5-5.1)
--- NOTE | 2019-10-16 06:31 | NUR ---
0500-REPOSITIONED. NO CHANGES. VSS. ORAL CARE PROVIDED.
[2019-10-16 10:48] LABS: HEMATOCRIT 32.3 % (42.0-54.0); HEMOGLOBIN 10.1 g/dL (13.5-17.5)
--- NOTE | 2019-10-16 13:15 | NUR ---
0700 REPORT RECEIVED AND CARE ASSUMED OF PATIENT.. SEE FLOW SHEET FOR SHIFT ASSESMENT FINDINGS 0830 PT IS WITH MAROON NGT DRAINAGE IN THE CANNISTER 0900 H AND H DRAWN 1000 DR HILLMAN CALLED AND UPDATED ON NGT H AND H RESULTS.. DR DALY CONSULT ORDERED 1030 DR DALY CALLED AND INFORMNED OF CONSULT.. 1110 CALLED UPDATE GIVEN AND CONSENT RECIEVED FOR EGD TO BE DONE AT BEDSIDE// 1145 DR DEMARCO IN TO SEE PATIENT 1145 DR DALY IN TO SEE PATIENT.. 1200 DR DALY AT THE BEDSIDE AND EGD IN PROGRESS WITH GI LAB PERSONELL ASSISTING,, 1205 DR HILLMAN IN TO SEE PATIENT..UPDATE GIVEN.. 1255 EGD COMPLETE .. STATES TRAUMA FROM NGT CAUSING THE PROBLEMS.. NGT REMOVED AND NOT TO BE REPLACED 1300 DR DALY CALLED AND SPOKE WITH PATIENTS AND DAUGHTER.. 1319
--- NOTE | 2019-10-16 18:51 | NUR ---
1400 VSS 1500 NO CHANGES 1630 I AND O DONE BS NON INSULIN COVER..
[2019-10-16 20:56] LABS: HEMOGLOBIN 9.4 g/dL (13.5-17.5)
[2019-10-17] VITALS (81 sets, daily range): BP systolic 74–169; BP diastolic 45–101
[2019-10-17 05:30] LABS: HEMATOCRIT 29.3 % (42.0-54.0); MCH 31.5 pg (26.0-34.0); MCHC 30.7 g/dL (31.0-37.0); MCV 102.4 fL (80.0-100.0); PLATELET COUNT 310 10x3/uL (130-400); RBC 2.86 10x6/uL (4.20-6.10); RDW 14.6 % (11.5-14.5); WBC 22.1 10x3/uL (4.8-10.8)
[2019-10-17 05:36] LABS: LYMPHOCYTES 3 % (15-50); MONOCYTES 2 % (2-11); NEUTROPHILS 93 % (40-80); PLATELET ESTIMATE NORMAL
[2019-10-17 05:42] LABS: ANION GAP 5.8 mmol/L (8-16); CALCIUM 8.2 mg/dL (8.5-10.1); CARBON DIOXIDE 36.2 mmol/L (21.0-32.0); CREATININE - SERUM 1.2 mg/dL (0.6-1.3)
--- NOTE | 2019-10-17 05:42 | NUR ---
1900-ASSESSMENT COMPLETED. VSS. A LINE ZEROED. 2100- NO CHANGES VSS. 2300-REASSESSMENT COMPLETED. 2330-CHG BATH WITH COMPLETE LINEN CHANGE. CHANGE CVL DRESSING D/T SOILED PER PROTOCOL. ALL LINES CHANGED WELL. 0000-SPOKE WITH DAUGHTER AND GIVEN UPDATE. PASSCODE WITH GIVEN. 0300-REASSESSMENT COMPLETED 0500- NO CHANGES. ORAL CARE AND REPOSITIONING EVERY 2 HOURS
--- NOTE | 2019-10-17 13:14 | NUR ---
0700 REPORT RECIEVED AND CARE ASSUMED OF PATIENT SEE FLOW SHEET FOR SHIFT ASSESMENT FINDINGS FENTANYLL AND DIPRIVAN FOR SEDATION AND LEVOPHED FOR PATIENT BP 0900 MEDS GIVEN .. 1000 DR DEMARCO IN TO SEE PATIENT.. UPDATE IS GIVEN AND ORDERS RECIEVED.. 1015 DR DALY IN TO SEE PATIENT.. UPDATE GIVEN.. 1200 CALLED AND UPDATE ON STATUS GIVEN.. 1300 UNCHANGED ..
--- NOTE | 2019-10-17 15:14 | NUR ---
1500 FSBS DONE LEVOPHED RATE DECREASED FOR BP... REPOSITIONED AND ORAL CARE GIVEN 1515 I AND O DONE
--- NOTE | 2019-10-17 20:28 | NUR ---
SPOKE WITH MELY, AND PT DAUGTHER. GIVEN UPDATE
[2019-10-18] VITALS (61 sets, daily range): BP systolic 96–179; BP diastolic 58–117
--- NOTE | 2019-10-18 04:16 | NUR ---
1900-ASSESSMENT COMPLETED. SEE FLOW SHEET 2100- REPOSITIONED. ORAL CARE PROVIDED. 2300-REASSESSMENT COMPLETED. NO CHANGES 0100-REPOSITIONED. ORAL CARE PROVIDED. 0300-REASSESSMENT COMPLETED. NO CHANGES STILL ON LEVOPHED DRIP. HAD TO INCREASE IN 1900 HOUR. LEFT GROIN A LINE ZEROED AND WOKRING. GOOD WAVE FORM.
--- NOTE | 2019-10-18 05:09 | NUR ---
NOTED BLISTER, HALF DOLLAR SIZE, TO INNER THIGH. LEAKING. MEPILEX APPLIED. RIGHT ARM WEEPING CLEAR FLUIDS. AND LEFT HEEL RED, BLANCHABLE. PINK BOOTS APPLIED.
[2019-10-18 05:35] LABS: BASOPHILS 0.1 % (0-2); EOSINOPHILS 0.1 % (0-7); IMMATURE GRANULOCYTES 0.5 % (0-5); LYMPHOCYTES 7.4 % (15-50); MCH 31.6 pg (26.0-34.0); MCHC 30.8 g/dL (31.0-37.0); MCV 102.8 fL (80.0-100.0); MEAN PLATELET VOLUME 10.8 fL (7.4-10.4); MONOCYTES 2.5 % (2-11); NEUTROPHILS 89.4 % (40-80); PLATELET COUNT 264 10x3/uL (130-400); RBC 2.53 10x6/uL (4.20-6.10); RDW 14.5 % (11.5-14.5); WBC 18.6 10x3/uL (4.8-10.8)
[2019-10-18 05:41] LABS: CALC OSMOLALITY 291 mosm/kg (275-300); CALCIUM 7.7 mg/dL (8.5-10.1); CARBON DIOXIDE 34.1 mmol/L (21.0-32.0); CHLORIDE - SERUM 108 mmol/L (98-107); CREATININE - SERUM 1.3 mg/dL (0.6-1.3); GLUCOSE 140 mg/dL (74-106); PHOSPHOROUS 3.1 mg/dL (2.5-4.9); POTASSIUM - SERUM 4.8 mmol/L (3.5-5.1); SODIUM 137 mmol/L (136-145); UREA NITROGEN 58 mg/dL (7-18); eGFR NON AFRICAN AMERICAN 57 mL/min (90-120)
--- NOTE | 2019-10-18 07:03 | NUR ---
DR PALMA AT BEDSIDE. UPDATE GIVEN. NEW ORDER RECEIVED TO TRANSFUSE 1 UNIT PRBC.
--- NOTE | 2019-10-18 10:45 | NUR ---
STARTED BLOOD TRANSFUSION ON PT. PT TOLERATING WELL. NO ACUTE SIGNS OF DISTRESS NOTED. WILL CONTINUE TO MONITOR
--- NOTE | 2019-10-18 11:31 | NUR ---
DR MALIK IN ROOM. UPDATE GIVEN. NEW ORDER RECEIVED FOR CXR. DIFFERENT BREATHING PATTERN NOTED. REASON FOR CXR. WILL CONTINUE TO MONITOR
--- NOTE | 2019-10-18 12:58 | NUR ---
Nutrition follow-up: Pt remains Pt TF off 2/2 OGT out and unable to replace; pt with Radha Garcia tear. ProcalAmine PPN started @ 30 ml/hr Labs reviewed WT: 194# Levophed started Recommend PEG tube placement and restarting Nepro @ 40 ml/hr with increase to goal rate of 60 ml/hr if medically feasible. RDN following.
--- NOTE | 2019-10-18 13:15 | NUR ---
BLOOD TRANSFUSION COMPLETED. NO ACUTE SIGNS OF DISTRESS/ REACTION NOTED. WILL CONTINUE TO MONITOR
--- NOTE | 2019-10-18 13:30 | NUR ---
DR LLOYD AT BEDSIDE. UPDATE GIVEN. WANTS SEDATION INCREASED. NO NEW ORDERS RECEIVED AT THIS TIME. WILL CONTINUE TO MONITOR
--- NOTE | 2019-10-18 15:00 | NUR ---
PT RESTING IN BED. REASSESSMENT COMPLETED. NO SIGNS OF DISTRESS NOTED. WILL CONTINUE TO MONITOR
--- NOTE | 2019-10-18 17:00 | NUR ---
PT RESTING IN BED. NO SIGNS OF DISTRESS NOTED. PT ON VENT SEDATED. WILL CONTINUE TO MONITOR
--- NOTE | 2019-10-18 19:31 | NUR ---
patient report recieved. no acute distress during this time. hob 30. instructed to not put ng or og tube per dr mcpherson. has propofol at 20 and procal at 30. levo off. camara to gravity. will continue to monitor.
--- NOTE | 2019-10-18 21:48 | NUR ---
spoke with family. stated they wanted to bring creams for her to use. .
--- NOTE | 2019-10-18 22:06 | NUR ---
spoke with family. update given.
--- NOTE | 2019-10-18 23:20 | NUR ---
vss. no acute distress. see reassment and adl
--- NOTE | 2019-10-18 23:55 | NUR ---
patient hr 62 at this time nsr
[2019-10-19] VITALS (25 sets, daily range): BP systolic 90–165; BP diastolic 60–97
--- NOTE | 2019-10-19 00:46 | NUR ---
patient hr bottomed out to 29. weak pulse. blood pressure 202 systolic at this time. zero and leveled a line. still 200 systolic but heart rate 30's. spo2 93% with matching heart rate. levophed was not connected to patient. leads attached correctly. apresoline given. hr 70's and bp 120's systolic.
--- NOTE | 2019-10-19 05:12 | NUR ---
a-line pulled. was no longer functioning. would not draw back. held pressure. put dressing on.
[2019-10-19 05:34] LABS: ANION GAP 5.5 mmol/L (8-16); CALCIUM 7.8 mg/dL (8.5-10.1); CARBON DIOXIDE 34.5 mmol/L (21.0-32.0); CREATININE - SERUM 1.2 mg/dL (0.6-1.3); PHOSPHOROUS 2.9 mg/dL (2.5-4.9)
[2019-10-19 05:35] LABS: BASOPHILS 0.1 % (0-2); EOSINOPHILS 0.3 % (0-7); HEMATOCRIT 29.8 % (42.0-54.0); HEMOGLOBIN 9.2 g/dL (13.5-17.5); MCH 30.6 pg (26.0-34.0); MCHC 30.9 g/dL (31.0-37.0); MONOCYTES 1.2 % (2-11); NEUTROPHILS 90.4 % (40-80); RBC 3.01 10x6/uL (4.20-6.10); WBC 19.8 10x3/uL (4.8-10.8)
[2019-10-19 05:37] LABS: PLATELET COUNT 196 10x3/uL (130-400)
--- NOTE | 2019-10-19 07:00 | NUR ---
PT REPORT RECEIVED FROM LANDSCAPE CREW LEADER NURSE. NO ACUTE SIGNS OF DISTRESS NOTED. SHIFT ASSESSMENT COMPLETED. WILL CONTINUE TO MONITOR
--- NOTE | 2019-10-19 08:09 | NUR ---
Nutrition consult for TPN: Received order from Dr. Valerio to begin TPN Chart reviewed Labs reviewed TPN ordered @ 40 ml/hr; pt on propofol Thank you for the consult. RDN following.
--- NOTE | 2019-10-19 09:00 | NUR ---
PT RESTING IN BED. NO SIGNS OF DISTRESS NOTED. WILL COTNINEU TO MONITOR
--- NOTE | 2019-10-19 12:36 | NUR ---
SPOKE WITH FAMILY. UPDATE GIVEN. ANSWERED QUESTIONS. STATED THEY WILL CALL BACK IN A COUPLE HOURS AFTER DR LLOYD ROUNDS FOR AN UPDATE. WILL CONTINUE TO MONITOR
--- NOTE | 2019-10-19 13:30 | NUR ---
DR LLOYD AT BEDSIDE. UPDATE GIVEN. NO NEW ORDERS RECEIVED. WILL CONTINUE TO MONITOR
--- NOTE | 2019-10-19 14:41 | NUR ---
DR MALIK IN ROOM. UPDATE GIVEN. NO NEW ORDERS. WILL CONTINUE TO MONITOR
--- NOTE | 2019-10-19 18:57 | NUR ---
patient report recieved no acute distress. 100% fio2. peep 12 propofol at 15. fentanyl at 250. tpn running. see assessment. see adl
--- NOTE | 2019-10-19 21:57 | MORECARE ---
CASE MANAGEMENT DISCHARGE SUMMARY PATIENT: PAULETTE BRIGHT UNIT: [id number] ADM DATE: 10/04/19 AGE: 78 : 40 SEX: M ROOM/BED: D.2311 AUTHOR: ERNESTO GARDNER PHYSICIAN: REFERRING PHYSICIAN: LARRY JULES MD DATE OF SERVICE: 10/19/19 Discharge Plan Patient Name: PAULETTE BRIGHT Facility: [facility]:[place] : 1940 Planned Disposition: Anticipated Discharge Date: Discharge Date: Expected LOS: Initial Reviewer: [email or web address] Initial Review Date: 10/04/2019 Generated: 10/19/19 10:57 pm DCP- Discharge Planning Updated by [email or web address]: Alvina Potter on 10/19/19 8:[address] Patient Name: PAULETTE BRIGHT Admission Status: ER Accout number: [id number] Admission Date: 10-04-2019 : 1940 Admission Diagnosis:COVID-19 Attending: JENNYFER JULES Current LOS: 15 Anticipated DC Date: Planned Disposition: Primary Insurance: MEDICARE A & B Discharge Planning Comments: CM spoke with patient's to complete initial dc planning assessment. CM educated patient on the CM role and verbal consent given by patient to complete assessment. Patient lives at home with family. Patient is independent. At discharge patient plans to return home and feels this is a safe discharge. CM discussed availability of home health, rehab services, and medical equipment. Patient will have family to transport home. Uncertain at this time what discharge needs or disposition. Patient will most likely need some type of rehab d/t deconditioning. CM will continue to follow and will assist as needed with dc plans/needs. Shipping Receiving Manager: Alvina Potter DCPIA - Discharge Planning Initial Assessment Updated by [email or web address]: Alvina Potter on 10/19/19 9:54 pm * Is the patient Alert and Oriented? No * PCP [facility] * Pharmacy [facility] * Preadmission Environment Home with Family * ADLs Independent * Equipment None * List name and contact numbers for known caregivers / representatives who currently or will assist patient after discharge: MELY BRIGHT - SPOUSE - [phone] * Verbal permission to speak to the caregivers and representatives has been obtained from the patient. N/A * Community resources currently utilized None * Additional services required to return to the preadmission environment? No * Can the patient safely return to the preadmission environment? Yes * Has this patient been hospitalized within the prior 30 days at any hospital? No Patient Name: PAULETTE BRIGHT Page [id number] at 2157 All edits/amendments must be made on the electronic document DICTATION DATE: 10/19/192156 POULTRY HUSBANDMAN: DIALLO 10/19/192156 RPT#: [id number] DC DATE: STATUS: ADM IN [facility] [address] [place] [address] END OF REPORT
--- NOTE | 2019-10-19 22:25 | NUR ---
1930- when patient suctioned he vagals down to 20's hr.
--- NOTE | 2019-10-19 22:25 | NUR ---
spoke with family regarding patient update
[2019-10-20] VITALS (24 sets, daily range): BP systolic 92–161; BP diastolic 61–94
--- NOTE | 2019-10-20 03:02 | NUR ---
PATIENT HR JUMPED TO UNCONTROLLED AFIB 140'S. PAGED DR LLOYD. NEW ORDERS. CARDIZAM. SPO2 DROPPED TO 70'S. RESPIRATORY AT BEDSIDE. LAVAGED. SPO2 INCREASED TO 90%.
[2019-10-20 06:53] LABS: HEMATOCRIT 30.9 % (42.0-54.0); HEMOGLOBIN 9.6 g/dL (13.5-17.5); MCH 31.1 pg (26.0-34.0); MCHC 31.1 g/dL (31.0-37.0); PLATELET COUNT 160 10x3/uL (130-400); RBC 3.09 10x6/uL (4.20-6.10); RDW 16.9 % (11.5-14.5); WBC 24.1 10x3/uL (4.8-10.8)
[2019-10-20 07:05] LABS: CALC OSMOLALITY 307 mosm/kg (275-300); CALCIUM 8.4 mg/dL (8.5-10.1); CARBON DIOXIDE 33.3 mmol/L (21.0-32.0); CHLORIDE - SERUM 111 mmol/L (98-107); GLUCOSE 132 mg/dL (74-106); MAGNESIUM - SERUM 2.8 mg/dL (1.8-2.4); PHOSPHOROUS 3.5 mg/dL (2.5-4.9); POTASSIUM - SERUM 4.8 mmol/L (3.5-5.1); SODIUM 146 mmol/L (136-145); UREA NITROGEN 54 mg/dL (7-18); eGFR NON AFRICAN AMERICAN 77 mL/min (90-120)
--- NOTE | 2019-10-20 07:10 | NUR ---
REPORT RECEIVED FROM OFF GOING NURSE AND PATIENT CARE ASSUMED. PATIENT LAYING IN BED ON BACK WITH EYES CLOSED AND RESP EVEN. HOB ELEVAED 30 DEGREES WITH ABDON SOFT WRIST RESTAINTS IN PLACE. VENT IN PLACE SZ 8.0 WITH 23 CM AT LIP LINE. VENT SETTING AC R24 FIO2 100% TV 500 PEEP 12. BP 110/77 HR 57 SPO2 100%. BAIRD TO GRAVITY WITH DARK GOLD URINE. WILL CONTINUE WITH PLAN OF CARE SR UPX 2 BED IN LOW POSITION AND CALL LIGHT IN REACH.
--- NOTE | 2019-10-20 07:23 | NUR ---
Nutrition follow-up: Chart reviewed Labs: Na slightly elevated, CO2, Mg elevated TPN adjusted; remains @ 40 ml/hr RDN following.
[2019-10-20 08:37] LABS: ELLIPTOCYTES OCC; LYMPHOCYTES 3 % (15-50); NEUTROPHILS 96 % (40-80); PLATELET ESTIMATE NORMAL; SCHISTOCYTES OCC
--- NOTE | 2019-10-20 09:15 | NUR ---
PATIENT REPOSITIONED TO RT SIDE FOR COMFORT.
--- NOTE | 2019-10-20 09:56 | NUR ---
BP 92/68. RE-STARTED LEVOPHED AT 5 MCG. WILL CONTINUE TO MONTIOR.
--- NOTE | 2019-10-20 10:15 | NUR ---
DTR CALLED. ANSWERED QUESTIONS TO SATISFACTION. FAMILY WANTS TO SPEAK WITH DR LLOYD WHEN HE ROUNDS.
--- NOTE | 2019-10-20 11:00 | NUR ---
RE-ASSESSMENT COMPLETED.
--- NOTE | 2019-10-20 11:15 | NUR ---
PATIENT UNCHANGED . PATIENT REPOSITIONED FOR COMFORT AND ORAL CARE PEFORMED. WILL CONTINUE TO MONITOR. SR UP X 2 BED IN LOW POSITON
--- NOTE | 2019-10-20 13:30 | NUR ---
PATIENT DESATING. DR LLOYD IN ROOM. VENT SETTINGS CHANGED. AC 26 FIO2 100% PEEP 14 RATE 100%. VSS. WILL CONTINUE TO MONITOR.
--- NOTE | 2019-10-20 15:00 | NUR ---
PATIENT UNCHANGED. RE-ASSESSMENT COMPLETED. PATIENT RE-POSITIONED FOR COMFORT AND ORAL CARE PERFORMED. WILL CONTINUE TO MONITOR.
--- NOTE | 2019-10-20 17:15 | NUR ---
PATIENT REPOSITIONED FOR COMFORT. PATIENT UNCHANGED. WILL CONTINUE TO MONITOR. SR UP X 2 BED IN LOW POSITION.
--- NOTE | 2019-10-20 19:20 | NUR ---
SPOKE WITH PATIENTS FAMILY. ANSWERED QUESTIONS TO SATISFACTION. SPOKE WITH DR LLOYD , STATES PATIENT IS END STAGE AND MAY HAVE PERMISSION TO COME VISIT PATIENT OUTSIDE DOOR. INFORMED PATIENT FAMILY AND STATED THEY WILL BE HERE WITHIN THE HOUR. INFORMED CHARGE NURSE DEBORAH GLASER AND NAYELI.
--- NOTE | 2019-10-20 21:31 | NUR ---
family at bedside. no acute distress. update given.
[2019-10-21] VITALS (25 sets, daily range): BP systolic 80–138; BP diastolic 57–96
--- NOTE | 2019-10-21 04:00 | NUR ---
patient desated to 70%. suctioned in line and orally. will continue to monitor
--- NOTE | 2019-10-21 04:00 | NUR ---
0000- patient sedated intubated. no acute distress. bicarb, fentanyl, propofol, tpn, d5w, and cardizam infusing at this time
[2019-10-21 04:55] LABS: BASOPHILS 0.1 % (0-2); EOSINOPHILS 0 % (0-7); HEMATOCRIT 30.3 % (42.0-54.0); IMMATURE GRANULOCYTES 1.3 % (0-5); LYMPHOCYTES 2.9 % (15-50); MCH 30.7 pg (26.0-34.0); MCHC 29.7 g/dL (31.0-37.0); MCV 103.4 fL (80.0-100.0); MEAN PLATELET VOLUME 11.4 fL (7.4-10.4); MONOCYTES 1.1 % (2-11); NEUTROPHILS 94.6 % (40-80); PLATELET COUNT 156 10x3/uL (130-400); RBC 2.93 10x6/uL (4.20-6.10); RDW 16.4 % (11.5-14.5); WBC 30.1 10x3/uL (4.8-10.8)
[2019-10-21 05:06] LABS: ANION GAP 5.9 mmol/L (8-16); CARBON DIOXIDE 35.3 mmol/L (21.0-32.0); MAGNESIUM - SERUM 2.5 mg/dL (1.8-2.4); POTASSIUM - SERUM 5.2 mmol/L (3.5-5.1)
--- NOTE | 2019-10-21 05:08 | NUR ---
lab called and stated labs were wrong and that i needed to redraw them. megha ross at bedside witnessed second draw up of labs from central line while other fluids on hold flushed 10 cc wasted 10cc and arie up 10 cc with new syringe then flushed 10cc.
[2019-10-21 05:31] LABS: CREATININE - SERUM 1.6 mg/dL (0.6-1.3)
[2019-10-21 05:32] LABS: CALCIUM 6.8 mg/dL (8.5-10.1)
--- NOTE | 2019-10-21 06:22 | NUR ---
discussed with dr brizuela regarding critical calcium
--- NOTE | 2019-10-21 06:32 | NUR ---
OBTAIN NEW ORDER FROM DR VALERIO OF CALCIUM CHLORIDE 1GM.
--- NOTE | 2019-10-21 07:00 | NUR ---
PT REPORT RECEIVED FROM REGIONAL MERCHANDISING MANAGER NURSE. NO ACUTE SIGNS OF DISTRESSS NOTED. SHIFT ASSESSMENT COMPLETED. PT ON VENT AND SEDATED. WILL CONTINUE TO MONITOR
--- NOTE | 2019-10-21 07:31 | NUR ---
Nutrition follow-up: Chart reviewed Dr. Luis ordered K, Na be taken out of TPN; formula adjusted TPN rate increased to 60 ml/hr RDN following.
--- NOTE | 2019-10-21 09:43 | NUR ---
INCREASE VT PER DR LLOYD 420
--- NOTE | 2019-10-21 10:51 | NUR ---
DR MALIK IN ROOM. UPDATE GIVEN. NO NEW ORDERS RECEIVED. WILL CONTINUE TO MONITOR
--- NOTE | 2019-10-21 10:54 | NUR ---
SPOKE WITH PT DAUGHTER. UDPATED HER ON VISITATION POLICY. TOLD HER WE HAVE TO SPEAK WITH INFECTION CONTROL BEFORE WE ALLOW ANY VISITORS. IC WILL BE IN MEETING AT NOON TO DISCUSS FURTHER VISITATIONS. TOLD DAUGHTER I WOULD CALL BACK AFTER IC NOTIFIES US OF VISITATION GUIDELINES.
--- NOTE | 2019-10-21 11:00 | NUR ---
DR LLOYD AT BEDSIDE. UPDATE GIVEN. NO NEW ORDERS AT THIS TIME. WILL CONTINUE TO MONITOR. REASSESSMENT COMPLETED.
--- NOTE | 2019-10-21 13:35 | NUR ---
INCREASED VT TO 440
--- NOTE | 2019-10-21 15:00 | NUR ---
PT REASSESSMENT COMPLETED. PT RESTING IN BED. NO SIGNS OF DISTRESS NOTED. WILL CONTINUE TO MONITOR
--- NOTE | 2019-10-21 17:06 | NUR ---
DR LLOYD ON PHONE WITH FAMILY. GIVING UPDATE. WILL CONTINUE TO MONITOR
[2019-10-22] VITALS (24 sets, daily range): BP systolic 70–135; BP diastolic 48–82
--- NOTE | 2019-10-22 04:06 | NUR ---
190- REPORT RECIEVED FROM TUAN GAONA. NO ACUTE DISTRESS. CARDIZAM AT 5. HR CONTROLLED. VSS. SEE ASSESSMENT 2099- MEDS GIVEN PER MAY. NO ACUTE DISTRESS. REPOSITIONED FOR COMFORT. 230- FAMILY CALLED. UPDATE GIVEN. 0100- PATIENT APPEARS TO HAVE CUFF LEAK. SUCTIONED ORALLY. PATIENT ON PEEP OF 15. RESPIRATORY AT BEDSIDE. 0300- LABS DRAWN. BLOOD SUGAR CHECKED.
[2019-10-22 04:19] LABS: APTT 34.1 SECONDS (22.8-39.4); INR 1.28 (0.85-1.17); PROTIME 15.9 SECONDS (11.6-15.0)
[2019-10-22 04:26] LABS: MCH 30.5 pg (26.0-34.0); MCV 105.1 fL (80.0-100.0); MEAN PLATELET VOLUME 11.6 fL (7.4-10.4); PLATELET COUNT 152 10x3/uL (130-400); RBC 2.95 10x6/uL (4.20-6.10); RDW 16.4 % (11.5-14.5); WBC 32.7 10x3/uL (4.8-10.8)
[2019-10-22 04:33] LABS: ANION GAP 7.4 mmol/L (8-16); BILIRUBIN - DIRECT 0.19 mg/dL (0.00-0.30); BILIRUBIN - INDIRECT 0.26 mg/dL (0.00-1.00); BILIRUBIN - TOTAL 0.45 mg/dL (0.2-1.3); CALCIUM 7.4 mg/dL (8.5-10.1); CARBON DIOXIDE 33.8 mmol/L (21.0-32.0); MAGNESIUM - SERUM 2.6 mg/dL (1.8-2.4); PHOSPHOROUS 4.8 mg/dL (2.5-4.9); POTASSIUM - SERUM 5.2 mmol/L (3.5-5.1); PROTEIN - SERUM 5.4 g/dL (6.4-8.2)
[2019-10-22 04:37] LABS: CREATININE - SERUM 2.2 mg/dL (0.6-1.3)
[2019-10-22 05:37] LABS: LYMPHOCYTES 5 % (15-50); NEUTROPHILS 83 % (40-80); PLATELET ESTIMATE DECREASED
--- NOTE | 2019-10-22 08:00 | OP ---
PATIENT NAME: PAULETTE BRIGHT MEDICAL RECORD: [id number] :[birth year] LOCATION:D.[facility] D.2311 ADMISSION DATE:10/04/19 SURGEON: KYLEIGH SUMMERS MD DATE OF OPERATION: 10/15/2019 PREOPERATIVE DIAGNOSES: 1. Need for IV access. 2. COVID-19 positive. 3. Acute respiratory failure on the ventilator. 4. Coronary artery disease. 5. Hypertension. POSTOPERATIVE DIAGNOSES: 1. Need for IV access. 2. COVID-19 positive. 3. Acute respiratory failure on the ventilator. 4. Coronary artery disease. 5. Hypertension. PROCEDURE: Left subclavian vein triple-lumen central venous line placement. SURGEON: Kyleigh Summers MD REPORT OF PROCEDURE: The patient's left chest was prepped and draped in sterile fashion. A needle was used to cannulate the left subclavian vein and a guidewire was advanced with ease. Over this wire, a dilator was placed followed by the triple lumen catheter. The catheter aspirated nonpulsatile dark blood and flushed easily in all 3 ports. This was sutured into place with 3-0 nylons and dressed appropriately. COMPLICATIONS: None. CONDITION: Stable. ANESTHESIA: General endotracheal. BLOOD LOSS: Minimal. Procedure done in the ICU at the bedside. TRANSINT:[id number] Voice Confirmation ID: [id number] DOCUMENT ID: [id number] KYLEIGH SUMMERS MD at 0800 CC: [id number] DICTATION DATE: 10/15/19 1418 FOLD SKIVER: 10/16/19 0017 ADM IN [facility] [id number] [place] [address]
--- NOTE | 2019-10-22 11:05 | NUR ---
Nutrition follow-up: Pt remains intubated, sedated Labs reviewed TPN continues @ 40 ml/hr RDN following.
[2019-10-23] VITALS (32 sets, daily range): BP systolic 76–105; BP diastolic 54–74
--- NOTE | 2019-10-23 04:13 | NUR ---
2104- UPDATE MELY, , AND ALEXX KHALIL ABOUT PATIENT STATUS. 229-COMPLETE CHG BATH WITH LINEN CHANGE
[2019-10-23 05:40] LABS: BASOPHILS 0.1 % (0-2); EOSINOPHILS 0 % (0-7); HEMATOCRIT 28.2 % (42.0-54.0); HEMOGLOBIN 8.3 g/dL (13.5-17.5); IMMATURE GRANULOCYTES 1.3 % (0-5); LYMPHOCYTES 2.8 % (15-50); MCH 30.7 pg (26.0-34.0); MCHC 29.4 g/dL (31.0-37.0); MCV 104.4 fL (80.0-100.0); MEAN PLATELET VOLUME 11.7 fL (7.4-10.4); MONOCYTES 3.5 % (2-11); NEUTROPHILS 92.3 % (40-80); PLATELET COUNT 124 10x3/uL (130-400); RDW 16.2 % (11.5-14.5); WBC 31.4 10x3/uL (4.8-10.8)
[2019-10-23 06:00] LABS: ALBUMIN 2.8 g/dL (3.4-5.0); BILIRUBIN - TOTAL 0.57 mg/dL (0.2-1.3); CALCIUM 7.3 mg/dL (8.5-10.1); CARBON DIOXIDE 30.2 mmol/L (21.0-32.0); MAGNESIUM - SERUM 2.4 mg/dL (1.8-2.4); PHOSPHOROUS 4.4 mg/dL (2.5-4.9); POTASSIUM - SERUM 5.2 mmol/L (3.5-5.1); PROTEIN - SERUM 5.3 g/dL (6.4-8.2); VANCOMYCIN - RANDOM 28.5 ug/mL (10.0-20.0)
[2019-10-23 06:01] LABS: CREATININE - SERUM 3.1 mg/dL (0.6-1.3)
--- NOTE | 2019-10-23 07:10 | NUR ---
REPORT RECEIVED FROM LEAK DETECTION ENGINEER AND PATIENT CARE ASSUMED. PATIENT LAYING IN BED ON BACK WITH VENT IN PLACE A/C 26 FIO2 100 PERCENT PEEP 16 TV 440. BAIRD INTACT DRAINING CONT GOLD URINE . LSUB CVL WITH DIPROVAN 10 , LEVOPHED 6, CARDIAZEM 10, TPN 60, D5 75,FENTANYL 200. WILL CONTINUE WITH PLAN OF CARE. SR UPX 2 BED IN LOW POSITION.
--- NOTE | 2019-10-23 08:15 | NUR ---
Nutrition follow-up: Chart reviewed Labs reviewed Will continue current TPN formula @ 60 ml/hr RDN following.
--- NOTE | 2019-10-23 12:30 | NUR ---
DR LLOYD SPOKE WITH PATIENT MELY. PATIENT DNR AND WILL PROCEED WITH TERMINAL EXTUBATION.
--- NOTE | 2019-10-23 14:00 | NUR ---
PATIENT AND DTR ON UNIT LOOKING THRU WINDOW AT PATIENT. MEDICATIONS AND PROCEDURES EXPLAINED TO FAMILY. PATIENT GIVEN MORPHINE 10 MG IV PER ORDER. STARTED TERMINAL EXTUBATION 1345. ADMISTERED ATIVAN 1 MG IV AT 1400. TIME OF OF 1405. PATIENT PRONOUNCED BY DR MOORE. RECORD OF DEARTH COMPLETED. [facility] HOME CONTACTED AND ADRIEN. POST MORTEM CARE COMPLETED . [facility] PICKED UP BODY. NOTIFIED [facility] AND FAX RECORD OF TO [facility].
--- NOTE | 2019-10-24 11:33 | MORECARE ---
CASE MANAGEMENT DISCHARGE SUMMARY PATIENT: PAULETTE BRIGHT UNIT: [id number] ADM DATE: 10/04/19 AGE: 78 : 40 SEX: M ROOM/BED: D.2311 AUTHOR: ERNESTO GARDNER PHYSICIAN: REFERRING PHYSICIAN: LARRY JULES MD DATE OF SERVICE: 10/24/19 Discharge Plan Patient Name: PAULETTE BRIGHT Facility: [facility]:[place] : 1940 Planned Disposition: Anticipated Discharge Date: Discharge Date: 10/23/2019 Expected LOS: Initial Reviewer: [email or web address] Initial Review Date: 10/04/2019 Generated: 10/24/19 12:32 pm DCP- Discharge Planning Updated by [email or web address]: Alvina Potter on 10/19/19 8:[address] Patient Name: PAULETTE BRIGHT Admission Status: ER Accout number: [id number] Admission Date: 10-04-2019 : 1940 Admission Diagnosis:COVID-19 Attending: JENNYFER JULES Current LOS: 15 Anticipated DC Date: Planned Disposition: Primary Insurance: MEDICARE A & B Discharge Planning Comments: CM spoke with patient's to complete initial dc planning assessment. CM educated patient on the CM role and verbal consent given by patient to complete assessment. Patient lives at home with family. Patient is independent. At discharge patient plans to return home and feels this is a safe discharge. CM discussed availability of home health, rehab services, and medical equipment. Patient will have family to transport home. Uncertain at this time what discharge needs or disposition. Patient will most likely need some type of rehab d/t deconditioning. CM will continue to follow and will assist as needed with dc plans/needs. Book Sewing Machine Operator: Alvina Potter DCPIA - Discharge Planning Initial Assessment Updated by [email or web address]: Alvina Potter on 10/19/19 9:54 pm * Is the patient Alert and Oriented? No * PCP [facility] * Pharmacy [facility] * Preadmission Environment Home with Family * ADLs Independent * Equipment None * List name and contact numbers for known caregivers / representatives who currently or will assist patient after discharge: MELY BRIGHT - SPOUSE - [phone] * Verbal permission to speak to the caregivers and representatives has been obtained from the patient. N/A * Community resources currently utilized None * Additional services required to return to the preadmission environment? No * Can the patient safely return to the preadmission environment? Yes * Has this patient been hospitalized within the prior 30 days at any hospital? No Last DP export: 10/19/19 8:57 pm Patient Name: PAULETTE BRIGHT Page 18696 at 1133 All edits/amendments must be made on the electronic document DICTATION DATE: 10/24/19 1132 TERRITORY SALES MANAGER MEDICAL: DIALLO 10/24/19 1132 RPT#: [id number] DC DATE:10/23/19 STATUS: DIS IN [facility] [address] [place] [address] END OF REPORT
[2019-10-26 16:09] LABS: AEROBE ID Final report (())
--- NOTE | 2019-10-28 13:48 | NUR ---
Per CMS protocol, restraint report logged into data base.
== END 2019-10-23 16:29 | DRG 870 ==
LOC: D.ER 15:53 → D.ICU 19:04 → D.M2 19:04 → D.ICU 10-05 15:55
PROVIDERS: Family Medicine; Internal Medicine; Internal Medicine Gastroenterology; Internal Medicine Nephrology; Internal Medicine Pulmonary Disease; ADMIT Emergency Medicine; ATTEND Emergency Medicine
PROC: 5A1955Z Respiratory Ventilation, Greater than 96 Consecutive Hours (ICD-10-PCS; principal; 2019-10-06)
PROC: 0BH17EZ Insertion of Endotracheal Airway into Trachea, Via Natural or Artificial Opening (ICD-10-PCS; 2019-10-06)
PROC: 05H633Z Insertion of Infusion Device into Left Subclavian Vein, Percutaneous Approach (ICD-10-PCS; 2019-10-06)
PROC: 03HY32Z Insertion of Monitoring Device into Upper Artery, Percutaneous Approach (ICD-10-PCS; 2019-10-06)
PROC: 0DH67UZ Insertion of Feeding Device into Stomach, Via Natural or Artificial Opening (ICD-10-PCS; 2019-10-06)
PROC: XW043E5 Introduction of Remdesivir Anti-infective into Central Vein, Percutaneous Approach, New Technology Group 5 (ICD-10-PCS; 2019-10-07)
PROC: 04HY32Z Insertion of Monitoring Device into Lower Artery, Percutaneous Approach (ICD-10-PCS; 2019-10-14)
PROC: 0B21XEZ Change Endotracheal Airway in Trachea, External Approach (ICD-10-PCS; 2019-10-14)
PROC: 05H533Z Insertion of Infusion Device into Right Subclavian Vein, Percutaneous Approach (ICD-10-PCS; 2019-10-15)
DX: A41.9 Sepsis, unspecified organism (principal); U07.1 COVID-19; J12.89 Other viral pneumonia; J96.01 Acute respiratory failure with hypoxia; R65.21 Severe sepsis with septic shock; J96.02 Acute respiratory failure with hypercapnia; N17.0 Acute kidney failure with tubular necrosis; E87.1 Hypo-osmolality and hyponatremia; E87.6 Hypokalemia; G47.33 Obstructive sleep apnea (adult) (pediatric); I25.10 Atherosclerotic heart disease of native coronary artery without angina pectoris; I71.4 Abdominal aortic aneurysm, without rupture; I10 Essential (primary) hypertension; D64.9 Anemia, unspecified; J47.9 Bronchiectasis, uncomplicated